=== PATIENT | female | born 1970 | race Caucasian/White ===

== ENCOUNTER 2018-11-10 09:47 | Inpatient (IN) | payer BC, OTHER ==
[~2018-11-10] VITALS: Ht 175.3 cm; Wt 61.2 kg
[~2018-11-10 09:47] MED LIST: CIPR500T87 PO; PROP40TA PO
[2018-11-10 10:17] LABS: BASOPHILS # (AUTO) 0.09 x10^3/uL (0-0.1); BASOPHILS % (AUTO) 1 % (0-1); EOSINOPHILS # (AUTO) 0.05 x10^3/uL (0-0.4); EOSINOPHILS % (AUTO) 1 % (1-7); LYMPHOCYTES # (AUTO) 1.41 x10^3/uL (1-3.4); LYMPHOCYTES % (AUTO) 19 % (22-44); MD NO; MEAN CORPUSCULAR HEMOGLOBIN 33.6 pg (27.0-34.8); MEAN CORPUSCULAR HGB CONC 33.6 g/dL (32.4-35.8); MEAN CORPUSCULAR VOLUME 100.1 fL (80-100); MEAN PLATELET VOLUME 7.7 fL (7.4-10.4); MONOCYTES # (AUTO) 0.52 x10^3/uL (0.2-0.8); MONOCYTES % (AUTO) 7 % (2-9); NEUTROPHILS # (AUTO) 5.25 x10^3/uL (1.8-6.8); NEUTROPHILS % (AUTO) 72 % (42-75); PLATELET COUNT 207 x10^3/uL (130-400); RED BLOOD COUNT 4.38 x10^6/uL (3.82-5.3); RED CELL DISTRIBUTION WIDTH 13.8 % (9.6-15.2)
[2018-11-10 10:26] LABS: ALANINE AMINOTRANSFERASE 26 U/L (12-78); ALBUMIN 3.3 g/dL (3.4-5.0); ANION GAP 7 mmol/L (5-15); CALCIUM 8.5 mg/dL (8.5-10.1); CHLORIDE 105 mmol/L (98-107)
[2018-11-10 10:29] LABS: ALKALINE PHOSPHATASE 184 U/L (45-117); BILIRUBIN,TOTAL 0.6 mg/dL (0.2-1.0)
--- NOTE | 2018-11-10 10:35 | NUR ---
PT AMUBLATORY TO ROOM FROM LOBBY
--- NOTE | 2018-11-10 10:44 | NUR ---
CALL LIGHT W/I REACH, WARM BLANKET PROVIDED. VSS.
[2018-11-10 11:29] LABS: MICROSCOPIC AUTO
[2018-11-10] MEDS ORDERED: OMNIPAQUE 350 MG/ML, 100ML BOTTLE ONE (11:29)
[2018-11-10 11:32] LABS: CULTURE INDICATED? YES
[2018-11-10] MEDS ORDERED: MORPHINE SULFATE 4 MG/ML, 1ML IVPush ONE (12:00)
[2018-11-10] MEDS ORDERED: ONDANSETRON ODT 4 MG PO ONE (12:00)
[2018-11-10] MEDS ORDERED: MORPHINE SULFATE 4 MG/ML, 1ML ONE (12:16)
[2018-11-10] MEDS ORDERED: ONDANSETRON 2MG/ML, 2ML ONE (12:16)
--- NOTE | 2018-11-10 12:18 | NUR ---
Meds admin. VSS. No other needs.
--- NOTE | 2018-11-10 12:33 | NUR ---
Report called to RADHA Winter.
[2018-11-10] MEDS ORDERED: BISACODYL 10 MG SUPP PR PRN (14:00)
[2018-11-10] MEDS ORDERED: PROMETHAZINE 25 MG/ML, 1ML IM PRN (14:00)
[2018-11-10] MEDS ORDERED: hydrALAzine 20 MG/ML, 1ML IVPush PRN (14:00)
[2018-11-10] MEDS ORDERED: LABETALOL 5MG/ML, 20ML IVPush PRN (14:00)
[2018-11-10 14:11] VITALS: BP 134/88
[2018-11-10] MEDS: LACTATED RINGERS 1,000 ML IV SCH ×2 (15:19→20:19)
[2018-11-10] MEDS: morphine SULFATE 10 MG/ML, 1ML IVPush PRN ×2 (15:19→18:45)
[2018-11-10] MEDS: ENOXAPARIN 40 MG/0.4 ML SQ SCH (15:19)
[2018-11-10 19:15] VITALS: BP 142/81
[2018-11-10] MEDS: ONDANSETRON 2MG/ML, 2ML IVPush PRN (20:44)
[2018-11-10 20:51] VITALS: BP 136/85
[2018-11-10] MEDS ORDERED: LORazepam 2 MG/ML, 1ML IVPush PRN (21:30)
[2018-11-11] MEDS: LACTATED RINGERS 1,000 ML IV SCH ×5 (00:12→20:37)
[2018-11-11 00:17] VITALS: BP 146/93
[2018-11-11] MEDS: morphine SULFATE 10 MG/ML, 1ML IVPush PRN ×5 (02:19→21:33)
[2018-11-11 05:16] LABS: MEAN CORPUSCULAR HEMOGLOBIN 34.7 pg (27.0-34.8); MEAN CORPUSCULAR HGB CONC 34.8 g/dL (32.4-35.8); MEAN CORPUSCULAR VOLUME 99.7 fL (80-100); PLATELET COUNT 116 x10^3/uL (130-400); RED BLOOD COUNT 3.58 x10^6/uL (3.82-5.3); RED CELL DISTRIBUTION WIDTH 13.7 % (9.6-15.2)
[2018-11-11 05:21] VITALS: BP 153/89
[2018-11-11 05:25] LABS: ALBUMIN 2.7 g/dL (3.4-5.0); ANION GAP 5 mmol/L (5-15); CALCIUM 7.9 mg/dL (8.5-10.1); CHLORIDE 107 mmol/L (98-107)
[2018-11-11 05:30] LABS: ALANINE AMINOTRANSFERASE 190 U/L (12-78); ALKALINE PHOSPHATASE 584 U/L (45-117); BILIRUBIN,TOTAL 2.7 mg/dL (0.2-1.0); CHOL/HDL RATIO 2.5; CHOLESTEROL, TOTAL 116 mg/dL (140-239); CREATININE 0.67 mg/dL (0.55-1.02); HDL CHOL % 40 % (28-40); HDL CHOLESTEROL (DIRECT) 46 mg/dL (40-60); LDL CHOLESTEROL,CALCULATED 55 mg/dL (54-169); LDL/HDL RATIO 1.2 (0.5-3.0); TOTAL PROTEIN 6.4 g/dL (6.4-8.2); TRIGLYCERIDES 77 mg/dL (50-200); VLDL CHOLESTEROL 15 mg/dL (0-25)
[2018-11-11 06:01] LABS: BASOPHILS # (AUTO) 0.03 x10^3/uL (0-0.1); BASOPHILS % (AUTO) 1 % (0-1); EOSINOPHILS # (AUTO) 0.07 x10^3/uL (0-0.4); EOSINOPHILS % (AUTO) 2 % (1-7); LYMPHOCYTES # (AUTO) 0.77 x10^3/uL (1-3.4); LYMPHOCYTES % (AUTO) 20 % (22-44); MD SCAN; MONOCYTES # (AUTO) 0.19 x10^3/uL (0.2-0.8); MONOCYTES % (AUTO) 5 % (2-9); NEUTROPHILS # (AUTO) 2.79 x10^3/uL (1.8-6.8); NEUTROPHILS % (AUTO) 72 % (42-75)
[2018-11-11 07:31] VITALS: BP 153/84
[2018-11-11] MEDS: PANTOPRAZOLE 40 MG IV IVPush SCH (07:38)
[2018-11-11 11:58] LABS: ALANINE AMINOTRANSFERASE 161 U/L (12-78); ALBUMIN 2.6 g/dL (3.4-5.0); ANION GAP 6 mmol/L (5-15); CALCIUM 8.4 mg/dL (8.5-10.1); CHLORIDE 105 mmol/L (98-107); CREATININE 0.73 mg/dL (0.55-1.02)
[2018-11-11 12:00] LABS: ALKALINE PHOSPHATASE 620 U/L (45-117); BILIRUBIN,TOTAL 3.1 mg/dL (0.2-1.0); TOTAL PROTEIN 6.3 g/dL (6.4-8.2)
[2018-11-11 13:14] VITALS: BP 138/82
[2018-11-11] MEDS: ENOXAPARIN 40 MG/0.4 ML SQ SCH (13:38)
[2018-11-11 20:00] VITALS: BP 144/84
[2018-11-12] MEDS: LACTATED RINGERS 1,000 ML IV SCH ×4 (01:01→18:27)
[2018-11-12 02:00] VITALS: BP 129/78
[2018-11-12] MEDS: morphine SULFATE 10 MG/ML, 1ML IVPush PRN ×3 (03:32→23:58)
[2018-11-12 06:43] LABS: MEAN CORPUSCULAR HEMOGLOBIN 33.3 pg (27.0-34.8); MEAN CORPUSCULAR HGB CONC 32.8 g/dL (32.4-35.8); MEAN CORPUSCULAR VOLUME 101.6 fL (80-100); RED BLOOD COUNT 3.35 x10^6/uL (3.82-5.3)
[2018-11-12 06:51] LABS: CALCIUM 7.6 mg/dL (8.5-10.1); CHLORIDE 103 mmol/L (98-107)
[2018-11-12 06:57] LABS: ALANINE AMINOTRANSFERASE 85 U/L (12-78); ALBUMIN 2.2 g/dL (3.4-5.0); ALKALINE PHOSPHATASE 474 U/L (45-117); ANION GAP 7 mmol/L (5-15); BILIRUBIN,TOTAL 2.1 mg/dL (0.2-1.0); CREATININE 0.64 mg/dL (0.55-1.02); TOTAL PROTEIN 5.5 g/dL (6.4-8.2)
[2018-11-12 07:25] LABS: BASOPHILS # (AUTO) 0.01 x10^3/uL (0-0.1); BASOPHILS % (AUTO) 0 % (0-1); EOSINOPHILS # (AUTO) 0.19 x10^3/uL (0-0.4); EOSINOPHILS % (AUTO) 5 % (1-7); LYMPHOCYTES # (AUTO) 0.91 x10^3/uL (1-3.4); LYMPHOCYTES % (AUTO) 25 % (22-44); MD SCAN; MEAN PLATELET VOLUME 8.8 fL (7.4-10.4); MONOCYTES # (AUTO) 0.26 x10^3/uL (0.2-0.8); MONOCYTES % (AUTO) 7 % (2-9); NEUTROPHILS # (AUTO) 2.25 x10^3/uL (1.8-6.8); NEUTROPHILS % (AUTO) 62 % (42-75); PLATELET COUNT 117 x10^3/uL (130-400)
[2018-11-12] MEDS: PANTOPRAZOLE 40 MG IV IVPush SCH (08:32)
[2018-11-12 10:03] VITALS: BP 135/88
[2018-11-12 10:04] VITALS: BP 135/88
[2018-11-12] MEDS ORDERED: LORazepam 2 MG/ML, 1ML IVPush PRN (13:30)
[2018-11-12 13:40] VITALS: BP 147/93
[2018-11-12] MEDS: ENOXAPARIN 40 MG/0.4 ML SQ SCH (18:27)
[2018-11-12 20:00] VITALS: BP 152/90
[2018-11-12] MEDS: ONDANSETRON 2MG/ML, 2ML IVPush PRN (20:52)
[2018-11-13 02:00] VITALS: BP 156/86
[2018-11-13] MEDS: ACETAMINOPHEN 325 MG TABLET PO PRN ×2 (02:49→10:34)
[2018-11-13] MEDS: LACTATED RINGERS 1,000 ML IV SCH (06:28)
[2018-11-13 06:35] LABS: ALBUMIN 2.2 g/dL (3.4-5.0); ANION GAP 7 mmol/L (5-15); CALCIUM 7.9 mg/dL (8.5-10.1); CHLORIDE 103 mmol/L (98-107)
[2018-11-13 06:40] LABS: ALANINE AMINOTRANSFERASE 55 U/L (12-78); ALKALINE PHOSPHATASE 380 U/L (45-117); CREATININE 0.72 mg/dL (0.55-1.02); TOTAL PROTEIN 5.5 g/dL (6.4-8.2)
[2018-11-13 06:54] VITALS: BP 161/81
[2018-11-13] MEDS: PANTOPRAZOLE 40 MG IV IVPush SCH (07:38)
[2018-11-13] MEDS ORDERED: OMEP-110 PO (10:10)
[2018-11-13] MEDS ORDERED: LIPA1CAP61 PO (10:10)
[2018-11-13] MEDS ORDERED: GABA-826 PO (10:15)
[2018-11-13] MEDS ORDERED: ACETAMINOPHEN 650 MG/20.3 ML UDC ONE (10:32)
[2018-11-13 13:06] VITALS: BP 156/98
== END 2018-11-13 13:15 | disposition home or self-care (01) | DRG 439 ==
LOC: ED 12:07 → 3NE 12:08 → ED 12:23 → 3NE 11-11 16:23 → DCLOUNGE 11-13 13:11
PROVIDERS: ADMIT Hospitalist; ATTEND Hospitalist
DX: K85.20 Alcohol induced acute pancreatitis without necrosis or infection (principal); E44.0 Moderate protein-calorie malnutrition; Z68.1 Body mass index [BMI] 19.9 or less, adult; K86.0 Alcohol-induced chronic pancreatitis; K70.9 Alcoholic liver disease, unspecified; K44.9 Diaphragmatic hernia without obstruction or gangrene; N18.9 Chronic kidney disease, unspecified; I12.9 Hypertensive chronic kidney disease with stage 1 through stage 4 chronic kidney disease, or unspecified chronic kidney disease; F10.21 Alcohol dependence, in remission; D69.6 Thrombocytopenia, unspecified; L71.9 Rosacea, unspecified; K83.8 Other specified diseases of biliary tract; K59.09 Other constipation; Z90.49 Acquired absence of other specified parts of digestive tract; Z79.899 Other long term (current) drug therapy
CPT/HCPCS: 36415; 74177; 74181; 80053; 80061; 81001; 83615; 83690; 83735; 84100; 85025; 87086; 93005; 96374; 99285; G0378; J1650; J2405; Q0162; Q9967; C9113; J2060; J2270; J7120

== ENCOUNTER 2018-11-22 21:02 | Inpatient (IN) | payer BC ==
[~2018-11-22] VITALS: Ht 175.3 cm; Wt 59.1 kg
[~2018-11-22 21:02] MED LIST changes: +GABA-826 PO; +LIPA1CAP61 PO; +OMEP-110 PO
[2018-11-22] MEDS ORDERED: ONDANSETRON ODT 4 MG ONE (21:08)
--- NOTE | 2018-11-22 21:21 | NUR ---
ZOFRAN GIVEN IN TRIAGE.
[2018-11-22 21:22] LABS: BASOPHILS # (AUTO) 0.08 x10^3/uL (0-0.1); BASOPHILS % (AUTO) 1 % (0-1); EOSINOPHILS # (AUTO) 0.05 x10^3/uL (0-0.4); EOSINOPHILS % (AUTO) 1 % (1-7); LYMPHOCYTES # (AUTO) 1.55 x10^3/uL (1-3.4); LYMPHOCYTES % (AUTO) 15 % (22-44); MD NO; MEAN CORPUSCULAR HEMOGLOBIN 33.5 pg (27.0-34.8); MEAN CORPUSCULAR HGB CONC 32.9 g/dL (32.4-35.8); MEAN PLATELET VOLUME 7.9 fL (7.4-10.4); MONOCYTES # (AUTO) 0.47 x10^3/uL (0.2-0.8); MONOCYTES % (AUTO) 5 % (2-9); NEUTROPHILS # (AUTO) 8.23 x10^3/uL (1.8-6.8); NEUTROPHILS % (AUTO) 79 % (42-75); PLATELET COUNT 260 x10^3/uL (130-400); RED BLOOD COUNT 4.78 x10^6/uL (3.82-5.3); RED CELL DISTRIBUTION WIDTH 14.1 % (9.6-15.2)
[2018-11-22] MEDS ORDERED: ONDANSETRON ODT 4 MG PO ONE (21:30)
[2018-11-22] MEDS ORDERED: SODIUM CHLORIDE FLUSH 10ML SYR IVF ONE (21:30)
[2018-11-22 21:32] LABS: ALANINE AMINOTRANSFERASE 28 U/L (12-78); ALBUMIN 3.6 g/dL (3.4-5.0); ANION GAP 10 mmol/L (5-15); CALCIUM 8.2 mg/dL (8.5-10.1); CHLORIDE 110 mmol/L (98-107); CREATININE 0.84 mg/dL (0.55-1.02)
[2018-11-22 21:34] LABS: ALKALINE PHOSPHATASE 298 U/L (45-117); BILIRUBIN,TOTAL 0.5 mg/dL (0.2-1.0); TOTAL PROTEIN 8.4 g/dL (6.4-8.2)
[2018-11-22] MEDS ORDERED: PROMETHAZINE 25 MG/ML, 1ML IM ONE (22:00)
[2018-11-22] MEDS ORDERED: MORPHINE SULFATE 4 MG/ML, 1ML IVPush PRN (22:00)
[2018-11-22] MEDS ORDERED: METOCLOPRAMIDE 5 MG/ML, 2ML IVPush ONE (22:00)
[2018-11-22] MEDS ORDERED: MORPHINE SULFATE 4 MG/ML, 1ML ONE (22:08)
[2018-11-22] MEDS ORDERED: PROMETHAZINE 25 MG/ML, 1ML ONE (22:08)
[2018-11-22] MEDS ORDERED: METOCLOPRAMIDE 5 MG/ML, 2ML ONE (22:08)
[2018-11-22] MEDS ORDERED: SODIUM CHLORIDE 0.9% 1,000 ML IV ONE (22:09)
--- NOTE | 2018-11-22 22:47 | NUR ---
PT AWARE SHE IT TO BE ADMITTED. PT SPOUSE SLEEPING ON CHAIRS.
[2018-11-22] MEDS ORDERED: morphine SULFATE 10 MG/ML, 1ML IVPush PRN (23:00)
[2018-11-22] MEDS ORDERED: ONDANSETRON 2MG/ML, 2ML IVPush PRN (23:00)
[2018-11-22] MEDS ORDERED: BISACODYL 10 MG SUPP PR PRN (23:00)
[2018-11-22 23:57] VITALS: BP 104/72
[2018-11-23] LABS: FOLATE LEVEL 5.5 ng/mL (3.1-17.5)
[2018-11-23] MEDS: LACTATED RINGERS 1,000 ML IV SCH ×3 (00:01→08:01)
[2018-11-23 00:10] LABS: MICROSCOPIC NOT IND
[2018-11-23 00:13] LABS: CULTURE INDICATED? NO
[2018-11-23 01:57] VITALS: BP 102/72
[2018-11-23 05:41] LABS: BASOPHILS # (AUTO) 0.03 x10^3/uL (0-0.1); BASOPHILS % (AUTO) 1 % (0-1); EOSINOPHILS # (AUTO) 0.02 x10^3/uL (0-0.4); EOSINOPHILS % (AUTO) 0 % (1-7); LYMPHOCYTES # (AUTO) 1.27 x10^3/uL (1-3.4); LYMPHOCYTES % (AUTO) 23 % (22-44); MD NO; MEAN CORPUSCULAR HEMOGLOBIN 34.9 pg (27.0-34.8); MEAN CORPUSCULAR VOLUME 99.8 fL (80-100); MEAN PLATELET VOLUME 7.9 fL (7.4-10.4); MONOCYTES # (AUTO) 0.47 x10^3/uL (0.2-0.8); MONOCYTES % (AUTO) 8 % (2-9); NEUTROPHILS # (AUTO) 3.87 x10^3/uL (1.8-6.8); NEUTROPHILS % (AUTO) 68 % (42-75); PLATELET COUNT 171 x10^3/uL (130-400); RED CELL DISTRIBUTION WIDTH 14.6 % (9.6-15.2)
[2018-11-23 05:49] LABS: ALBUMIN 2.9 g/dL (3.4-5.0); CALCIUM 7.6 mg/dL (8.5-10.1); CHLORIDE 113 mmol/L (98-107)
[2018-11-23 05:54] LABS: ALANINE AMINOTRANSFERASE 63 U/L (12-78); ALKALINE PHOSPHATASE 459 U/L (45-117); ANION GAP 8 mmol/L (5-15); BILIRUBIN,TOTAL 0.7 mg/dL (0.2-1.0); CREATININE 0.75 mg/dL (0.55-1.02); TOTAL PROTEIN 6.8 g/dL (6.4-8.2)
[2018-11-23] MEDS ORDERED: LORazepam 2 MG/ML, 1ML IV PRN ×5 (13:30)
[2018-11-23] MEDS ORDERED: CHLORDIAZEPOXIDE 25 MG CAPSULE PO ONE (13:30)
[2018-11-23] MEDS ORDERED: LORazepam 1MG TABLET PO PRN ×4 (13:30)
[2018-11-23] MEDS: LORazepam 0.5MG TABLET PO PRN ×2 (14:08→21:22)
[2018-11-23] MEDS: POTASSIUM CHLORIDE 20 MEQ, MAGNESIUM SULFATE 1 GM, FOLIC ACID 1 MG, THIAMINE 200 MG, MV... IV SCH (14:19)
[2018-11-23] MEDS ORDERED: CYANOCOBALAMIN 1,000 MCG/ML, 1ML IM ONE (15:30)
[2018-11-23] MEDS ORDERED: morphine SULFATE 10 MG/ML, 1ML IVPush PRN (17:00)
[2018-11-23 21:54] VITALS: BP 150/101
[2018-11-23] MEDS ORDERED: LACTATED RINGERS 1,000 ML IV SCH (23:00)
[2018-11-24] MEDS: LACTATED RINGERS 1,000 ML IV SCH ×4 (00:08→13:14)
[2018-11-24 00:17] VITALS: BP 138/91
[2018-11-24] MEDS: LORazepam 0.5MG TABLET PO PRN ×5 (01:25→18:41)
[2018-11-24 05:24] LABS: CHLORIDE 108 mmol/L (98-107)
[2018-11-24 05:28] LABS: ALANINE AMINOTRANSFERASE 32 U/L (12-78); ALBUMIN 2.5 g/dL (3.4-5.0); ALKALINE PHOSPHATASE 333 U/L (45-117); ANION GAP 5 mmol/L (5-15); BILIRUBIN,TOTAL 1.1 mg/dL (0.2-1.0); CALCIUM 7.6 mg/dL (8.5-10.1); CREATININE 0.61 mg/dL (0.55-1.02); TOTAL PROTEIN 5.8 g/dL (6.4-8.2)
[2018-11-24 05:42] LABS: BASOPHILS # (AUTO) 0.04 x10^3/uL (0-0.1); BASOPHILS % (AUTO) 1 % (0-1); EOSINOPHILS # (AUTO) 0.17 x10^3/uL (0-0.4); EOSINOPHILS % (AUTO) 4 % (1-7); LYMPHOCYTES # (AUTO) 1.48 x10^3/uL (1-3.4); LYMPHOCYTES % (AUTO) 33 % (22-44); MD NO; MEAN CORPUSCULAR HEMOGLOBIN 35.1 pg (27.0-34.8); MEAN CORPUSCULAR HGB CONC 34.5 g/dL (32.4-35.8); MEAN CORPUSCULAR VOLUME 101.6 fL (80-100); MEAN PLATELET VOLUME 8.6 fL (7.4-10.4); MONOCYTES # (AUTO) 0.39 x10^3/uL (0.2-0.8); MONOCYTES % (AUTO) 9 % (2-9); NEUTROPHILS # (AUTO) 2.45 x10^3/uL (1.8-6.8); NEUTROPHILS % (AUTO) 54 % (42-75); PLATELET COUNT 127 x10^3/uL (130-400); RED BLOOD COUNT 3.38 x10^6/uL (3.82-5.3); RED CELL DISTRIBUTION WIDTH 14.1 % (9.6-15.2)
[2018-11-24 07:23] VITALS: BP 138/95
[2018-11-24] MEDS ORDERED: POTASSIUM CHLORIDE 20 MEQ TAB.ER.PRT PO ONE ×2 (08:30→11:30)
[2018-11-24] MEDS ORDERED: PANTOPRAZOLE 40 MG IV IVPush SCH (08:30)
[2018-11-24] MEDS: NEUTRA PHOS K 250 MG TABLET PO SCH ×3 (09:15→22:04)
[2018-11-24 12:39] VITALS: BP 130/92
[2018-11-24] MEDS: POTASSIUM CHLORIDE 20 MEQ, MAGNESIUM SULFATE 1 GM, FOLIC ACID 1 MG, THIAMINE 200 MG, MV... IV SCH (16:24)
[2018-11-24] MEDS: PANTOPROZOLE 40MG TABLET PO SCH ×2 (17:08→22:04)
[2018-11-24 19:07] VITALS: BP 130/82
[2018-11-25 01:45] VITALS: BP 126/80
[2018-11-25 05:00] LABS: BASOPHILS # (AUTO) 0.03 x10^3/uL (0-0.1); BASOPHILS % (AUTO) 1 % (0-1); EOSINOPHILS # (AUTO) 0.18 x10^3/uL (0-0.4); EOSINOPHILS % (AUTO) 5 % (1-7); LYMPHOCYTES # (AUTO) 1.42 x10^3/uL (1-3.4); LYMPHOCYTES % (AUTO) 39 % (22-44); MD NO; MEAN CORPUSCULAR HGB CONC 34.7 g/dL (32.4-35.8); MEAN CORPUSCULAR VOLUME 100.9 fL (80-100); MEAN PLATELET VOLUME 8.6 fL (7.4-10.4); MONOCYTES % (AUTO) 8 % (2-9); NEUTROPHILS # (AUTO) 1.69 x10^3/uL (1.8-6.8); NEUTROPHILS % (AUTO) 47 % (42-75); PLATELET COUNT 136 x10^3/uL (130-400); RED BLOOD COUNT 3.38 x10^6/uL (3.82-5.3)
[2018-11-25 05:10] LABS: ALBUMIN 2.5 g/dL (3.4-5.0); ANION GAP 2 mmol/L (5-15); CALCIUM 7.3 mg/dL (8.5-10.1); CHLORIDE 109 mmol/L (98-107)
[2018-11-25 05:13] LABS: ALANINE AMINOTRANSFERASE 25 U/L (12-78); ALKALINE PHOSPHATASE 279 U/L (45-117); BILIRUBIN,TOTAL 0.7 mg/dL (0.2-1.0); CREATININE 0.64 mg/dL (0.55-1.02); TOTAL PROTEIN 5.8 g/dL (6.4-8.2)
[2018-11-25] MEDS: PANTOPROZOLE 40MG TABLET PO SCH (05:18)
[2018-11-25] MEDS: LACTATED RINGERS 1,000 ML IV SCH ×2 (06:29→12:51)
[2018-11-25 07:27] VITALS: BP 144/62
[2018-11-25] MEDS: NEUTRA PHOS K 250 MG TABLET PO SCH (08:44)
[2018-11-25] MEDS ORDERED: FOLI-17 PO (12:29)
[2018-11-25] MEDS ORDERED: THIA100T67 PO (12:29)
[2018-11-25] MEDS ORDERED: PANT40TA5 PO (12:30)
[2018-11-25 13:22] VITALS: BP 154/88
== END 2018-11-25 14:16 | disposition home or self-care (01) | DRG 440 ==
LOC: ED 22:27 → EDIP 22:31 → 4NOR 23:08 → DCLOUNGE 11-25 14:10
PROVIDERS: ADMIT Internal Medicine; ATTEND Internal Medicine
DX: K85.20 Alcohol induced acute pancreatitis without necrosis or infection (principal); D75.89 Other specified diseases of blood and blood-forming organs; E86.9 Volume depletion, unspecified; E87.5 Hyperkalemia; F10.21 Alcohol dependence, in remission; I12.9 Hypertensive chronic kidney disease with stage 1 through stage 4 chronic kidney disease, or unspecified chronic kidney disease; K70.9 Alcoholic liver disease, unspecified; K86.1 Other chronic pancreatitis; N18.9 Chronic kidney disease, unspecified; Y90.8 Blood alcohol level of 240 mg/100 ml or more
CPT/HCPCS: 36415; 99285; J7042; 80053; 80307; 81003; 82607; 82746; 82977; 83690; 83735; 84100; 84703; 85025; 96372; 96374; 96375; G0378; J2550; J3411; J3475; J3480; Q0162; C9113; J2765; J3420; J7120

== ENCOUNTER 2018-12-28 10:28 | Inpatient (IN) | payer BC ==
[~2018-12-28] VITALS: Ht 175.3 cm; Wt 57.3 kg
[~2018-12-28 10:28] MED LIST changes: +FOLI-17 PO; +PANT40TA5 PO; +THIA100T67 PO
--- NOTE | 2018-12-28 11:15 | NUR ---
GROUP TESTER: PT AMBULATORY TO ROOM FROM LOBBY
[2018-12-28] MEDS ORDERED: SODIUM CHLORIDE FLUSH 10ML SYR IVF ONE (11:30)
[2018-12-28] MEDS ORDERED: SODIUM CHLORIDE 0.9% 1,000ML IVBOLUS ONE (11:30)
[2018-12-28] MEDS ORDERED: FAMOTIDINE 20 MG/2 ML IVP ONE (11:30)
[2018-12-28] MEDS ORDERED: MAALOX/HYOSCYAMINE/LIDOCAINE 45 ML BTL PO ONE (11:30)
[2018-12-28] MEDS ORDERED: ONDANSETRON 2MG/ML, 2ML IVPush ONE (11:30)
[2018-12-28] MEDS ORDERED: LORazepam 2 MG/ML, 1ML IVPush ONE (11:30)
[2018-12-28] MEDS ORDERED: LORazepam 2 MG/ML, 1ML ONE (11:53)
[2018-12-28] MEDS ORDERED: ONDANSETRON 2MG/ML, 2ML ONE (11:54)
[2018-12-28 11:57] LABS: BASOPHILS # (AUTO) 0.02 x10^3/uL (0-0.1); BASOPHILS % (AUTO) 0 % (0-1); EOSINOPHILS # (AUTO) 0.06 x10^3/uL (0-0.4); EOSINOPHILS % (AUTO) 1 % (1-7); LYMPHOCYTES # (AUTO) 0.68 x10^3/uL (1-3.4); LYMPHOCYTES % (AUTO) 14 % (22-44); MD NO; MEAN CORPUSCULAR HEMOGLOBIN 34.8 pg (27.0-34.8); MEAN CORPUSCULAR VOLUME 102.4 fL (80-100); MEAN PLATELET VOLUME 8.5 fL (7.4-10.4); MONOCYTES % (AUTO) 6 % (2-9); NEUTROPHILS # (AUTO) 3.96 x10^3/uL (1.8-6.8); NEUTROPHILS % (AUTO) 79 % (42-75); PLATELET COUNT 127 x10^3/uL (130-400); RED BLOOD COUNT 4.02 x10^6/uL (3.82-5.3); RED CELL DISTRIBUTION WIDTH 15.3 % (9.6-15.2)
[2018-12-28 12:09] LABS: ALBUMIN 3.2 g/dL (3.4-5.0); ANION GAP 9 mmol/L (5-15); CALCIUM 8.6 mg/dL (8.5-10.1); CHLORIDE 102 mmol/L (98-107)
[2018-12-28] MEDS ORDERED: FAMOTIDINE 20 MG/2 ML ONE (12:09)
[2018-12-28 12:15] LABS: ALANINE AMINOTRANSFERASE 135 U/L (12-78); ALKALINE PHOSPHATASE 781 U/L (45-117); BILIRUBIN,TOTAL 2.6 mg/dL (0.2-1.0); CREATININE 0.86 mg/dL (0.55-1.02); TOTAL PROTEIN 7.1 g/dL (6.4-8.2)
--- NOTE | 2018-12-28 12:15 | NUR ---
FLUIDS INFUSING AND MEDICATED PER ORDERS
[2018-12-28] MEDS ORDERED: MAALOX/HYOSCYAMINE/LIDOCAINE 45 ML BTL ONE (12:33)
[2018-12-28] MEDS ORDERED: SODIUM CHLORIDE 0.9% 1,000 ML IV ONE (13:10)
[2018-12-28] MEDS ORDERED: LORazepam 2 MG/ML, 1ML IV PRN ×5 (13:30)
[2018-12-28] MEDS ORDERED: LORazepam 1MG TABLET PO PRN ×4 (13:30)
[2018-12-28] MEDS ORDERED: BISACODYL 10 MG SUPP PR PRN (13:30)
[2018-12-28] MEDS ORDERED: ONDANSETRON 2MG/ML, 2ML IVPush PRN (13:30)
[2018-12-28] MEDS ORDERED: LIDODERM 5% PATCH TD PRN (13:30)
[2018-12-28] MEDS ORDERED: SODIUM CHLORIDE FLUSH 10ML SYR IVF PRN (13:30)
[2018-12-28] MEDS ORDERED: DOCUSATE 100 MG CAPSULE PO PRN (13:30)
[2018-12-28] MEDS ORDERED: LORazepam 0.5MG TABLET PO PRN (13:30)
[2018-12-28] MEDS ORDERED: ONDANSETRON 2MG/ML, 2ML IV PRN (13:30)
[2018-12-28] MEDS ORDERED: hydrALAzine 20 MG/ML, 1ML IVPush PRN (13:30)
[2018-12-28] MEDS ORDERED: morphine SULFATE 10 MG/ML, 1ML IVPush PRN (13:30)
--- NOTE | 2018-12-28 13:37 | NUR ---
pt to mri at this time
--- NOTE | 2018-12-28 13:47 | NUR ---
PT NOT IN ROOM AT THIS TIME
--- NOTE | 2018-12-28 14:11 | NUR ---
UNABLE TO FIND PT IN ER. TECH TO LOOK FURTHER ON HOSPITAL CAMP[facility]
--- NOTE | 2018-12-28 14:24 | NUR ---
PT HAD BEEN IN MRI. RETURNED BY W/C
[2018-12-28] MEDS ORDERED: KETOROLAC 30 MG/1 ML ONE (14:26)
[2018-12-28] MEDS: KETOROLAC 30 MG/1 ML IV PRN ×2 (14:27→23:59)
--- NOTE | 2018-12-28 14:50 | NUR ---
REPORT TO LESLIE. HOSPITALIST AT BEDSIDE
[2018-12-28] MEDS ORDERED: MAGNESIUM SULFATE 1 GM in SODIUM CHLORIDE 0.9% 50 ML IV ONE (15:00)
[2018-12-28 15:31] VITALS: BP 127/85
[2018-12-28 15:39] LABS: INTERNATIONAL NORMALIZED RATIO 1.22 (0.93-1.1); PROTHROMBIN TIME 12.7 Seconds (9.6-11.5)
[2018-12-28] MEDS: LACTATED RINGERS 1,000 ML IV SCH ×2 (16:25→23:52)
[2018-12-28] MEDS ORDERED: PANCRELIPASE 24,000 CAPSULE.DR PO SCH (17:00)
[2018-12-28 17:51] LABS: MICROSCOPIC INDICATED
[2018-12-28 17:52] LABS: CULTURE INDICATED? YES
[2018-12-28 18:10] LABS: AMPHETAMINE SCREEN, URINE Negative (Negative); BARBITURATE SCREEN, URINE Negative (Negative); BENZODIAZEPINE SCREEN, URINE Positive (Negative); CANNABINOID SCREEN, URINE Positive (Negative); COCAINE SCREEN, URINE Negative (Negative); METHADONE SCREEN, URINE Negative (Negative); OPIATE SCREEN, URINE Negative (Negative)
[2018-12-28 19:48] VITALS: BP 137/84
[2018-12-28] MEDS: CEFTRIAXONE PMX 1GM/50ML 50 ML IV SCH (21:01)
[2018-12-29 01:19] VITALS: BP 135/80
[2018-12-29] MEDS: LACTATED RINGERS 1,000 ML IV SCH ×4 (04:30→22:00)
[2018-12-29 05:09] LABS: CALCIUM 7.7 mg/dL (8.5-10.1); CHLORIDE 105 mmol/L (98-107)
[2018-12-29 05:15] LABS: ALANINE AMINOTRANSFERASE 76 U/L (12-78); ALBUMIN 2.5 g/dL (3.4-5.0); ALKALINE PHOSPHATASE 525 U/L (45-117); ANION GAP 12 mmol/L (5-15); BILIRUBIN,TOTAL 1.4 mg/dL (0.2-1.0); TOTAL PROTEIN 5.6 g/dL (6.4-8.2)
[2018-12-29 05:34] LABS: MEAN CORPUSCULAR HEMOGLOBIN 35.6 pg (27.0-34.8); MEAN CORPUSCULAR HGB CONC 34.6 g/dL (32.4-35.8); MEAN CORPUSCULAR VOLUME 102.9 fL (80-100); MEAN PLATELET VOLUME 9.1 fL (7.4-10.4); PLATELET COUNT 75 x10^3/uL (130-400); RED BLOOD COUNT 3.17 x10^6/uL (3.82-5.3); RED CELL DISTRIBUTION WIDTH 15.1 % (9.6-15.2)
[2018-12-29 05:35] LABS: BASOPHILS # (AUTO) 0.02 x10^3/uL (0-0.1); BASOPHILS % (AUTO) 1 % (0-1); EOSINOPHILS # (AUTO) 0.11 x10^3/uL (0-0.4); EOSINOPHILS % (AUTO) 3 % (1-7); LYMPHOCYTES # (AUTO) 1.06 x10^3/uL (1-3.4); LYMPHOCYTES % (AUTO) 25 % (22-44); MD SCAN; MONOCYTES # (AUTO) 0.36 x10^3/uL (0.2-0.8); MONOCYTES % (AUTO) 8 % (2-9); NEUTROPHILS # (AUTO) 2.76 x10^3/uL (1.8-6.8); NEUTROPHILS % (AUTO) 64 % (42-75)
[2018-12-29 07:48] VITALS: BP 129/79
[2018-12-29] MEDS ORDERED: MULTIVITAMINS/MINERALS TABLET PO SCH (09:00)
[2018-12-29] MEDS ORDERED: PANTOPROZOLE 40MG TABLET PO SCH (09:00)
[2018-12-29] MEDS ORDERED: FOLIC ACID 1 MG TABLET PO SCH (09:00)
[2018-12-29] MEDS ORDERED: THIAMINE 100MG TABLET PO SCH (09:00)
[2018-12-29] MEDS: PANCRELIPASE 24,000 CAPSULE.DR PO SCH ×2 (12:19→16:54)
[2018-12-29] MEDS: KETOROLAC 30 MG/1 ML IV PRN (12:32)
[2018-12-29 13:45] VITALS: BP 125/84
[2018-12-29] MEDS: CEFTRIAXONE PMX 1GM/50ML 50 ML IV SCH (20:13)
[2018-12-29 21:45] VITALS: BP 140/85
== END 2018-12-30 00:49 | disposition left against medical advice (07) | DRG 432 ==
LOC: ED 12:29 → EDIP 13:10 → 4WST 15:24
PROVIDERS: ADMIT Hospitalist; ATTEND Hospitalist
DX: K70.10 Alcoholic hepatitis without ascites (principal); K85.20 Alcohol induced acute pancreatitis without necrosis or infection; K86.0 Alcohol-induced chronic pancreatitis; F10.239 Alcohol dependence with withdrawal, unspecified; N39.0 Urinary tract infection, site not specified; K92.1 Melena; K70.30 Alcoholic cirrhosis of liver without ascites; D64.9 Anemia, unspecified; D69.6 Thrombocytopenia, unspecified; D75.89 Other specified diseases of blood and blood-forming organs; E83.42 Hypomagnesemia; E87.6 Hypokalemia; G89.29 Other chronic pain; Z53.21 Procedure and treatment not carried out due to patient leaving prior to being seen by health care provider; I12.9 Hypertensive chronic kidney disease with stage 1 through stage 4 chronic kidney disease, or unspecified chronic kidney disease; N18.9 Chronic kidney disease, unspecified; K59.00 Constipation, unspecified; K83.8 Other specified diseases of biliary tract; Z86.010 Personal history of colon polyps
CPT/HCPCS: 36415; J3490; 74181; 80053; 80307; 81001; 83690; 83735; 84100; 84703; 85025; 85610; 87086; 96374; G0378; J0696; J1885; J2405; J3475; J2060; J7030; J7120

== ENCOUNTER 2019-01-13 10:39 | Inpatient (IN) | payer BC ==
[~2019-01-13] VITALS: Ht 175.3 cm; Wt 58.1 kg
[2019-01-13] MEDS ORDERED: OMEP10CA4 PO (11:10)
--- NOTE | 2019-01-13 11:38 | NUR ---
MD TO BEDSIDE FOR ASSESSMENT, ORDERS RECEIVED. IV PLACED, LABS DRAWN AND FLUIDS STARTED.
[2019-01-13] MEDS ORDERED: ONDANSETRON 2MG/ML, 2ML ONE (11:40)
[2019-01-13 11:49] LABS: BASOPHILS # (AUTO) 0.08 x10^3/uL (0-0.1); BASOPHILS % (AUTO) 1 % (0-1); EOSINOPHILS # (AUTO) 0.03 x10^3/uL (0-0.4); EOSINOPHILS % (AUTO) 1 % (1-7); LYMPHOCYTES # (AUTO) 1.14 x10^3/uL (1-3.4); LYMPHOCYTES % (AUTO) 18 % (22-44); MD NO; MEAN CORPUSCULAR HEMOGLOBIN 34.6 pg (27.0-34.8); MEAN CORPUSCULAR HGB CONC 33.8 g/dL (32.4-35.8); MEAN CORPUSCULAR VOLUME 102.3 fL (80-100); MEAN PLATELET VOLUME 8.7 fL (7.4-10.4); MONOCYTES # (AUTO) 0.44 x10^3/uL (0.2-0.8); MONOCYTES % (AUTO) 7 % (2-9); NEUTROPHILS # (AUTO) 4.74 x10^3/uL (1.8-6.8); NEUTROPHILS % (AUTO) 74 % (42-75); PLATELET COUNT 172 x10^3/uL (130-400); RED BLOOD COUNT 4.45 x10^6/uL (3.82-5.3)
[2019-01-13] MEDS ORDERED: LORazepam 2 MG/ML, 1ML ONE (11:51)
[2019-01-13] MEDS: LORazepam 2 MG/ML, 1ML IVPush PRN ×2 (11:59→13:16)
[2019-01-13] MEDS ORDERED: ONDANSETRON 2MG/ML, 2ML IVPush ONE (12:00)
[2019-01-13] MEDS ORDERED: SODIUM CHLORIDE FLUSH 10ML SYR IVF ONE (12:00)
[2019-01-13] MEDS ORDERED: SODIUM CHLORIDE 0.9% 1,000ML IVBOLUS ONE (12:00)
[2019-01-13 12:01] LABS: ALANINE AMINOTRANSFERASE 35 U/L (12-78); ALBUMIN 3.7 g/dL (3.4-5.0); ANION GAP 13 mmol/L (5-15); CALCIUM 8.8 mg/dL (8.5-10.1); CHLORIDE 107 mmol/L (98-107); CREATININE 0.92 mg/dL (0.55-1.02); INTERNATIONAL NORMALIZED RATIO 1.19 (0.93-1.1); PROTHROMBIN TIME 12.4 Seconds (9.6-11.5)
[2019-01-13 12:04] LABS: ALKALINE PHOSPHATASE 299 U/L (45-117); BILIRUBIN,TOTAL 1.1 mg/dL (0.2-1.0); TOTAL PROTEIN 8.1 g/dL (6.4-8.2)
[2019-01-13 12:35] LABS: MICROSCOPIC INDICATED
[2019-01-13 12:36] LABS: CULTURE INDICATED? YES
[2019-01-13] MEDS ORDERED: SODIUM CHLORIDE 0.9% 1,000 ML IV ONE (12:53)
[2019-01-13] MEDS ORDERED: CEFTRIAXONE PMX 1GM/50ML 50 ML IV ONE (13:00)
[2019-01-13] MEDS ORDERED: CEFTRIAXONE PMX 1GM/50ML 50 ML ONE (13:10)
--- NOTE | 2019-01-13 13:16 | NUR ---
PT MEDICATED WITH SECOND DOSE ATIVAN FOR TREMORS. SECOND BOLUS GIVEN AND ABX STARTED PER NOV. PT CONTINUES TO BE TACHY AND HTN. AWARE. CALL LIGHT WITHIN REACH. AWAITING ROOM ASSIGNMENT ON FLOOR
--- NOTE | 2019-01-13 13:46 | NUR ---
REPORT GIVEN TO CESARIO GARCIA, PT READY FOR TRANSPORT
[2019-01-13] MEDS ORDERED: ONDANSETRON 2MG/ML, 2ML IVPush PRN (14:00)
[2019-01-13] MEDS: LACTATED RINGERS 1,000 ML IV SCH ×2 (14:00→20:06)
[2019-01-13] MEDS ORDERED: POLYETHYLENE GLYCOL 17 GM PACKET PO PRN (14:00)
[2019-01-13] MEDS ORDERED: LABETALOL 5MG/ML, 20ML IVPush PRN (14:00)
[2019-01-13] MEDS ORDERED: LORazepam 1MG TABLET PO PRN ×3 (14:00)
[2019-01-13] MEDS ORDERED: ONDANSETRON ODT 4 MG PO PRN (14:00)
[2019-01-13] MEDS ORDERED: CHLORDIAZEPOXIDE 25 MG CAPSULE PO PRN (14:00)
[2019-01-13] MEDS ORDERED: LORazepam 2 MG/ML, 1ML IV PRN ×4 (14:00)
[2019-01-13 15:06] LABS: FREE T4 (FREE THYROXINE) 0.97 ng/dL (0.76-1.46)
[2019-01-13] MEDS ORDERED: POTASSIUM CHLORIDE 20 MEQ TAB.ER.PRT PO ONE ×2 (15:30→21:30)
[2019-01-13] MEDS ORDERED: MAGNESIUM SULFATE PMX 4GM/100M 100 ML IV ONE (15:30)
[2019-01-13] MEDS: morphine SULFATE 10 MG/ML, 1ML IVPush PRN ×2 (16:18→21:52)
[2019-01-13] MEDS: LORazepam 1MG TABLET PO PRN (16:56)
[2019-01-13] MEDS: PANTOPROZOLE 40MG TABLET PO SCH (16:56)
[2019-01-13] MEDS: PANCRELIPASE 24,000 CAPSULE.DR PO SCH (17:00)
[2019-01-13] MEDS: CHLORDIAZEPOXIDE 25 MG CAPSULE PO SCH ×2 (17:46→21:34)
[2019-01-13 18:20] VITALS: BP 140/94
[2019-01-13 20:00] VITALS: BP 149/89
[2019-01-13] MEDS: POTASSIUM CHLORIDE 20 MEQ, MAGNESIUM SULFATE 1 GM, FOLIC ACID 1 MG, THIAMINE 200 MG, MV... IV SCH (21:35)
[2019-01-14 02:00] VITALS: BP 143/92
[2019-01-14] MEDS: morphine SULFATE 10 MG/ML, 1ML IVPush PRN ×3 (03:50→15:34)
[2019-01-14 05:04] LABS: ALBUMIN 2.6 g/dL (3.4-5.0); ANION GAP 4 mmol/L (5-15); CALCIUM 7.3 mg/dL (8.5-10.1); CHLORIDE 115 mmol/L (98-107)
[2019-01-14 05:18] LABS: ALANINE AMINOTRANSFERASE 86 U/L (12-78); ALKALINE PHOSPHATASE 433 U/L (45-117); BILIRUBIN,TOTAL 1.5 mg/dL (0.2-1.0); CREATININE 0.73 mg/dL (0.55-1.02); TOTAL PROTEIN 5.9 g/dL (6.4-8.2)
[2019-01-14 05:44] LABS: BASOPHILS # (AUTO) 0.03 x10^3/uL (0-0.1); BASOPHILS % (AUTO) 1 % (0-1); EOSINOPHILS # (AUTO) 0.26 x10^3/uL (0-0.4); EOSINOPHILS % (AUTO) 8 % (1-7); LYMPHOCYTES # (AUTO) 0.74 x10^3/uL (1-3.4); LYMPHOCYTES % (AUTO) 23 % (22-44); MD SCAN; MEAN CORPUSCULAR HEMOGLOBIN 35.4 pg (27.0-34.8); MEAN CORPUSCULAR HGB CONC 34.2 g/dL (32.4-35.8); MEAN CORPUSCULAR VOLUME 103.3 fL (80-100); MEAN PLATELET VOLUME 9.2 fL (7.4-10.4); MONOCYTES # (AUTO) 0.13 x10^3/uL (0.2-0.8); MONOCYTES % (AUTO) 4 % (2-9); NEUTROPHILS % (AUTO) 64 % (42-75); PLATELET COUNT 76 x10^3/uL (130-400); RED BLOOD COUNT 3.29 x10^6/uL (3.82-5.3); RED CELL DISTRIBUTION WIDTH 14.8 % (9.6-15.2)
[2019-01-14 07:55] VITALS: BP 152/110
[2019-01-14] MEDS: FOLIC ACID 1 MG TABLET PO SCH (08:35)
[2019-01-14] MEDS: SENNA/DOCUSATE TABLET PO SCH (08:35)
[2019-01-14] MEDS: PANCRELIPASE 24,000 CAPSULE.DR PO SCH ×3 (08:35→19:41)
[2019-01-14] MEDS: LACTATED RINGERS 1,000 ML IV SCH ×3 (08:35→19:27)
[2019-01-14] MEDS: PANTOPROZOLE 40MG TABLET PO SCH ×2 (08:35→16:05)
[2019-01-14] MEDS: CHLORDIAZEPOXIDE 25 MG CAPSULE PO SCH ×3 (08:36→21:21)
[2019-01-14] MEDS: LORazepam 1MG TABLET PO PRN ×3 (08:44→16:05)
[2019-01-14 12:35] VITALS: BP 146/88
[2019-01-14] MEDS: CEFTRIAXONE PMX 1GM/50ML 50 ML IV SCH (12:42)
[2019-01-14 15:29] LABS: ACETAMINOPHEN < 2 mcg/mL (10-30); SALICYLATE LEVEL < 1.7 mg/dL (2.8-20.0)
[2019-01-14] MEDS ORDERED: OMNIPAQUE 350 MG/ML, 100ML BOTTLE ONE (17:15)
[2019-01-14 20:00] VITALS: BP 151/88
[2019-01-14] MEDS: POTASSIUM CHLORIDE 20 MEQ, MAGNESIUM SULFATE 1 GM, FOLIC ACID 1 MG, THIAMINE 200 MG, MV... IV SCH (21:21)
[2019-01-15 02:00] VITALS: BP 145/89
[2019-01-15 05:04] LABS: CHLORIDE 109 mmol/L (98-107); MEAN CORPUSCULAR HEMOGLOBIN 36.3 pg (27.0-34.8); MEAN CORPUSCULAR HGB CONC 34.9 g/dL (32.4-35.8); MEAN PLATELET VOLUME 9.3 fL (7.4-10.4); PLATELET COUNT 68 x10^3/uL (130-400); RED BLOOD COUNT 3.09 x10^6/uL (3.82-5.3); RED CELL DISTRIBUTION WIDTH 14.6 % (9.6-15.2)
[2019-01-15 05:11] LABS: ALANINE AMINOTRANSFERASE 49 U/L (12-78); ALBUMIN 2.5 g/dL (3.4-5.0); ALKALINE PHOSPHATASE 376 U/L (45-117); ANION GAP 5 mmol/L (5-15); BILIRUBIN,TOTAL 0.9 mg/dL (0.2-1.0); CALCIUM 7.9 mg/dL (8.5-10.1); CREATININE 0.73 mg/dL (0.55-1.02); TOTAL PROTEIN 5.8 g/dL (6.4-8.2)
[2019-01-15 05:53] LABS: BASOPHILS # (AUTO) 0.03 x10^3/uL (0-0.1); BASOPHILS % (AUTO) 1 % (0-1); EOSINOPHILS # (AUTO) 0.25 x10^3/uL (0-0.4); EOSINOPHILS % (AUTO) 10 % (1-7); LYMPHOCYTES # (AUTO) 0.86 x10^3/uL (1-3.4); LYMPHOCYTES % (AUTO) 35 % (22-44); MD SCAN; MONOCYTES # (AUTO) 0.18 x10^3/uL (0.2-0.8); MONOCYTES % (AUTO) 7 % (2-9); NEUTROPHILS # (AUTO) 1.17 x10^3/uL (1.8-6.8); NEUTROPHILS % (AUTO) 47 % (42-75)
[2019-01-15 07:20] VITALS: BP 142/83
[2019-01-15] MEDS: PANTOPROZOLE 40MG TABLET PO SCH ×2 (08:37→17:36)
[2019-01-15] MEDS: SENNA/DOCUSATE TABLET PO SCH (08:37)
[2019-01-15] MEDS: CHLORDIAZEPOXIDE 25 MG CAPSULE PO SCH ×3 (08:37→21:19)
[2019-01-15] MEDS: PANCRELIPASE 24,000 CAPSULE.DR PO SCH ×3 (08:37→17:00)
[2019-01-15] MEDS: FOLIC ACID 1 MG TABLET PO SCH (08:38)
[2019-01-15] MEDS: CEFTRIAXONE PMX 1GM/50ML 50 ML IV SCH (13:29)
[2019-01-15 14:02] VITALS: BP 139/78
[2019-01-15] MEDS: LACTATED RINGERS 1,000 ML IV SCH (17:00)
[2019-01-15] MEDS: LORazepam 2 MG/ML, 1ML IV PRN (17:36)
[2019-01-15 18:57] VITALS: BP 137/87
[2019-01-15] MEDS: LORazepam 1MG TABLET PO PRN (21:19)
[2019-01-15] MEDS: POTASSIUM CHLORIDE 20 MEQ, MAGNESIUM SULFATE 1 GM, FOLIC ACID 1 MG, THIAMINE 200 MG, MV... IV SCH (21:20)
[2019-01-16 02:26] VITALS: BP 134/87
[2019-01-16 05:21] LABS: MEAN CORPUSCULAR HGB CONC 34.6 g/dL (32.4-35.8); MEAN CORPUSCULAR VOLUME 104.1 fL (80-100); MEAN PLATELET VOLUME 9.6 fL (7.4-10.4); PLATELET COUNT 80 x10^3/uL (130-400); RED CELL DISTRIBUTION WIDTH 14.1 % (9.6-15.2)
[2019-01-16 05:25] LABS: CHLORIDE 107 mmol/L (98-107)
[2019-01-16 05:47] LABS: ALANINE AMINOTRANSFERASE 40 U/L (12-78); ALBUMIN 2.5 g/dL (3.4-5.0); ALKALINE PHOSPHATASE 330 U/L (45-117); ANION GAP 8 mmol/L (5-15); BILIRUBIN,TOTAL 0.5 mg/dL (0.2-1.0); CALCIUM 8.2 mg/dL (8.5-10.1); CREATININE 0.71 mg/dL (0.55-1.02)
[2019-01-16 05:50] LABS: BASOPHILS # (AUTO) 0.03 x10^3/uL (0-0.1); BASOPHILS % (AUTO) 1 % (0-1); EOSINOPHILS # (AUTO) 0.21 x10^3/uL (0-0.4); EOSINOPHILS % (AUTO) 7 % (1-7); LYMPHOCYTES # (AUTO) 1.07 x10^3/uL (1-3.4); LYMPHOCYTES % (AUTO) 36 % (22-44); MD SCAN; MONOCYTES # (AUTO) 0.23 x10^3/uL (0.2-0.8); MONOCYTES % (AUTO) 8 % (2-9); NEUTROPHILS # (AUTO) 1.43 x10^3/uL (1.8-6.8); NEUTROPHILS % (AUTO) 48 % (42-75)
[2019-01-16] MEDS: PANTOPROZOLE 40MG TABLET PO SCH ×2 (07:30→18:15)
[2019-01-16 08:23] VITALS: BP 137/92
[2019-01-16] MEDS: SENNA/DOCUSATE TABLET PO SCH (09:00)
[2019-01-16] MEDS: LORazepam 2 MG/ML, 1ML IV PRN (09:01)
[2019-01-16] MEDS: FOLIC ACID 1 MG TABLET PO SCH (09:02)
[2019-01-16] MEDS: PANCRELIPASE 24,000 CAPSULE.DR PO SCH ×3 (09:02→18:15)
[2019-01-16] MEDS: CHLORDIAZEPOXIDE 25 MG CAPSULE PO SCH (09:02)
[2019-01-16] MEDS: LACTATED RINGERS 1,000 ML IV SCH ×3 (12:00→22:03)
[2019-01-16] MEDS: CEFTRIAXONE PMX 1GM/50ML 50 ML IV SCH (13:15)
[2019-01-16 15:28] VITALS: BP 137/97
[2019-01-16] MEDS: LORazepam 0.5MG TABLET PO PRN (18:15)
[2019-01-16 18:57] VITALS: BP 130/93
[2019-01-17 01:41] VITALS: BP 119/88
[2019-01-17 06:55] VITALS: BP 110/80
[2019-01-17] MEDS: LACTATED RINGERS 1,000 ML IV SCH ×2 (08:50→15:30)
[2019-01-17] MEDS: SENNA/DOCUSATE TABLET PO SCH (09:00)
[2019-01-17 09:18] LABS: MEAN CORPUSCULAR HEMOGLOBIN 35.1 pg (27.0-34.8); MEAN CORPUSCULAR HGB CONC 33.3 g/dL (32.4-35.8); MEAN CORPUSCULAR VOLUME 105.3 fL (80-100); MEAN PLATELET VOLUME 9.2 fL (7.4-10.4); PLATELET COUNT 97 x10^3/uL (130-400); RED BLOOD COUNT 3.31 x10^6/uL (3.82-5.3); RED CELL DISTRIBUTION WIDTH 14.8 % (9.6-15.2)
[2019-01-17] MEDS: PANCRELIPASE 24,000 CAPSULE.DR PO SCH ×3 (09:49→17:58)
[2019-01-17] MEDS: FOLIC ACID 1 MG TABLET PO SCH (09:49)
[2019-01-17] MEDS: CHLORDIAZEPOXIDE 25 MG CAPSULE PO SCH (09:49)
[2019-01-17 10:06] LABS: ALBUMIN 2.7 g/dL (3.4-5.0); ANION GAP 7 mmol/L (5-15); CALCIUM 8.2 mg/dL (8.5-10.1); CHLORIDE 105 mmol/L (98-107); CREATININE 0.96 mg/dL (0.55-1.02)
[2019-01-17 10:31] LABS: ALANINE AMINOTRANSFERASE 31 U/L (12-78); ALKALINE PHOSPHATASE 290 U/L (45-117); BILIRUBIN,TOTAL 0.5 mg/dL (0.2-1.0)
[2019-01-17] MEDS: PANTOPROZOLE 40MG TABLET PO SCH ×2 (11:00→17:58)
[2019-01-17 11:17] LABS: MD YES
[2019-01-17 11:25] LABS: EOS#(MANUAL) 0.19 x10^3/uL (0.0-0.4); EOS% (MANUAL) 6 % (1-7); LYMPH#(MANUAL) 1.02 x10^3/uL (1-3.4); LYMPHS% (MANUAL) 33 % (22-44); MONOS#(MANUAL) 0.09 x10^3/uL (0.3-2.7); MONOS% (MANUAL) 3 % (2-9); SEGS% (MANUAL) 58 % (42-75)
[2019-01-17 11:26] LABS: <PLATELET ESTIMATE> DECREASED; <PLT MORPHOLOGY> NORMAL PLT MORPH
[2019-01-17 13:50] VITALS: BP 125/89
[2019-01-17] MEDS: CEFTRIAXONE PMX 1GM/50ML 50 ML IV SCH (14:53)
[2019-01-17] MEDS: LORazepam 0.5MG TABLET PO PRN (17:58)
[2019-01-17 19:22] VITALS: BP 120/81
[2019-01-18] MEDS: LACTATED RINGERS 1,000 ML IV SCH ×2 (00:09→06:02)
[2019-01-18 00:21] VITALS: BP 116/84
[2019-01-18] MEDS: PANTOPROZOLE 40MG TABLET PO SCH (07:49)
[2019-01-18] MEDS: PANCRELIPASE 24,000 CAPSULE.DR PO SCH (07:49)
[2019-01-18 08:07] VITALS: BP 126/95
[2019-01-18] MEDS ORDERED: OMEP-110 PO (08:14)
[2019-01-18] MEDS: FOLIC ACID 1 MG TABLET PO SCH (08:33)
[2019-01-18] MEDS: SENNA/DOCUSATE TABLET PO SCH (08:33)
[2019-01-18] MEDS: CHLORDIAZEPOXIDE 25 MG CAPSULE PO SCH (08:33)
== END 2019-01-18 11:19 | disposition home or self-care (01) | DRG 432 ==
LOC: ED 12:17 → EDIP 13:00 → 3NE 14:00
PROVIDERS: ADMIT Hospitalist; ATTEND Hospitalist
DX: K70.10 Alcoholic hepatitis without ascites (principal); K85.20 Alcohol induced acute pancreatitis without necrosis or infection; E43 Unspecified severe protein-calorie malnutrition; K86.0 Alcohol-induced chronic pancreatitis; Z68.1 Body mass index [BMI] 19.9 or less, adult; F10.239 Alcohol dependence with withdrawal, unspecified; D69.6 Thrombocytopenia, unspecified; D75.89 Other specified diseases of blood and blood-forming organs; E83.42 Hypomagnesemia; F12.90 Cannabis use, unspecified, uncomplicated; F41.0 Panic disorder [episodic paroxysmal anxiety]; I12.9 Hypertensive chronic kidney disease with stage 1 through stage 4 chronic kidney disease, or unspecified chronic kidney disease; N18.9 Chronic kidney disease, unspecified; F10.229 Alcohol dependence with intoxication, unspecified; I20.9 Angina pectoris, unspecified; N30.90 Cystitis, unspecified without hematuria; Z82.0 Family history of epilepsy and other diseases of the nervous system
CPT/HCPCS: 36415; 87806; 96361; 99285; J7121; 74177; 80053; 80074; 80307; 80329; 81001; 83690; 83735; 84100; 84439; 84443; 85025; 85610; 85730; 87040; 87086; 93005; 96374; G0378; J0696; J2405; J3411; J3475; J3480; Q9967; G0475; G0480; J2060; J2270; J7030; J7120

== ENCOUNTER 2019-02-19 05:23 | Day surgery (SDC) | payer BC ==
[~2019-02-19] VITALS: Ht 175.3 cm; Wt 55.0 kg
[~2019-02-19 05:23] MED LIST changes: +OMEP10CA4 PO
[2019-02-19 06:06] VITALS: BP 125/80
[2019-02-19] MEDS ORDERED: LACTATED RINGERS 1,000 ML IV SCH (06:09)
[2019-02-19 06:30] VITALS: BP 125/80
[2019-02-19] MEDS ORDERED: ZENPEP (06:38)
[2019-02-19] MEDS ORDERED: GABA300C10 PO (06:38)
[2019-02-19] MEDS ORDERED: CHLORHEXIDINE 15 ML UDC ONE (07:50)
[2019-02-19] MEDS ORDERED: PIPERACILLIN/TAZO/PMX 3.375GM 50 ML ONE (07:52)
[2019-02-19] MEDS ORDERED: OXYcodone 5 MG/5 ML ORAL.SOL UDC PO PRN (08:00)
[2019-02-19] MEDS ORDERED: METOPROLOL 1 MG/ML, 5ML IV PRN (08:00)
[2019-02-19] MEDS ORDERED: MIDAZOLAM 1 MG/ML, 2ML IV PRN (08:00)
[2019-02-19] MEDS ORDERED: FENTANYL PF 100 MCG/2ML IV PRN (08:00)
[2019-02-19] MEDS ORDERED: ONDANSETRON 2MG/ML, 2ML IV PRN (08:00)
[2019-02-19] MEDS ORDERED: MIDAZOLAM 1 MG/ML, 2ML ONE (08:18)
[2019-02-19] MEDS ORDERED: PROPOFOL 10 MG/ML, 20ML ONE ×3 (08:22→09:11)
[2019-02-19] MEDS ORDERED: [UNRECOGNIZED DRUG - REMARK] XX PRN (08:30)
[2019-02-19 10:01] LABS: MEAN CORPUSCULAR HEMOGLOBIN 36.3 pg (27.0-34.8); MEAN CORPUSCULAR HGB CONC 34.1 g/dL (32.4-35.8); MEAN CORPUSCULAR VOLUME 106.5 fL (80-100); MEAN PLATELET VOLUME 8.4 fL (7.4-10.4); PLATELET COUNT 50 x10^3/uL (130-400); RED BLOOD COUNT 2.85 x10^6/uL (3.82-5.3); RED CELL DISTRIBUTION WIDTH 14.9 % (9.6-15.2)
[2019-02-19 10:15] LABS: ALBUMIN 2.7 g/dL (3.4-5.0); ANION GAP 6 mmol/L (5-15); CALCIUM 7.7 mg/dL (8.5-10.1); CHLORIDE 109 mmol/L (98-107)
[2019-02-19] MEDS ORDERED: BUPIVACAINE/PF 0.25% ONE (10:15)
[2019-02-19] MEDS ORDERED: ETHYL ALCOHOL 98%, 5 ML ONE (10:15)
[2019-02-19] MEDS ORDERED: TRIAMCINOLONE ACETONIDE 40 MG/ML, 1ML ONE (10:15)
[2019-02-19 10:18] LABS: ALANINE AMINOTRANSFERASE 31 U/L (12-78); ALKALINE PHOSPHATASE 118 U/L (45-117); BILIRUBIN,TOTAL 0.7 mg/dL (0.2-1.0); CREATININE 0.74 mg/dL (0.55-1.02); TOTAL PROTEIN 5.6 g/dL (6.4-8.2)
[2019-02-19 11:33] LABS: BASOPHILS # (AUTO) 0.01 x10^3/uL (0-0.1); BASOPHILS % (AUTO) 0 % (0-1); EOSINOPHILS # (AUTO) 0.04 x10^3/uL (0-0.4); EOSINOPHILS % (AUTO) 2 % (1-7); LYMPHOCYTES # (AUTO) 0.82 x10^3/uL (1-3.4); LYMPHOCYTES % (AUTO) 33 % (22-44); MD SCAN; MONOCYTES # (AUTO) 0.24 x10^3/uL (0.2-0.8); MONOCYTES % (AUTO) 10 % (2-9); NEUTROPHILS # (AUTO) 1.38 x10^3/uL (1.8-6.8); NEUTROPHILS % (AUTO) 56 % (42-75)
[2019-02-19] MEDS ORDERED: OMNIPAQUE 350 MG/ML, 100ML BOTTLE ONE (12:20)
== END 2019-02-19 12:50 | disposition home or self-care (01) ==
LOC: OUT 05:23
PROVIDERS: ATTEND Internal Medicine Gastroenterology
DX: K85.90 Acute pancreatitis without necrosis or infection, unspecified (principal); K86.1 Other chronic pancreatitis; K44.9 Diaphragmatic hernia without obstruction or gangrene; K22.70 Barrett's esophagus without dysplasia; K29.80 Duodenitis without bleeding; K31.5 Obstruction of duodenum; K21.9 Gastro-esophageal reflux disease without esophagitis; R73.03 Prediabetes; F10.239 Alcohol dependence with withdrawal, unspecified; E44.0 Moderate protein-calorie malnutrition; Z68.1 Body mass index [BMI] 19.9 or less, adult; Z88.8 Allergy status to other drugs, medicaments and biological substances; Z86.73 Personal history of transient ischemic attack (TIA), and cerebral infarction without residual deficits; Z98.890 Other specified postprocedural states; Z79.899 Other long term (current) drug therapy
CPT/HCPCS: 36415; 43239; 43259; 74170; 80053; 80307; 82150; 83690; 85025; 86301; 88172; 88173; 88177; 88305; 88307; J2250; J2543; J2704; J3301; J3490; J7120; Q9967

== ENCOUNTER 2019-03-09 10:56 | Inpatient (IN) | payer BC, OTHER ==
[~2019-03-09] VITALS: Ht 175.3 cm; Wt 53.6 kg
[~2019-03-09 10:56] MED LIST changes: +GABA300C10 PO; +ZENPEP
[2019-03-09] MEDS ORDERED: ONDANSETRON 2MG/ML, 2ML ONE (11:28)
[2019-03-09] MEDS ORDERED: LORazepam 2 MG/ML, 1ML ONE ×3 (11:28→14:56)
[2019-03-09] MEDS: LORazepam 2 MG/ML, 1ML IVPush PRN ×4 (11:42→15:03)
--- NOTE | 2019-03-09 11:44 | NUR ---
Assumed care of patient. 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 Hx pancreatitis. Last drink was Saturday. Patient very tremulous and anxious. IV started, NS hung, and meds admin. Placed on NIBP, pulse ox and electronic device monitor. Will continue to monitor.
[2019-03-09] MEDS ORDERED: SODIUM CHLORIDE 0.9% 1,000ML IVBOLUS ONE ×2 (12:00→13:30)
[2019-03-09] MEDS ORDERED: ONDANSETRON 2MG/ML, 2ML IVPush ONE (12:00)
[2019-03-09] MEDS ORDERED: SODIUM CHLORIDE FLUSH 10ML SYR IVF ONE (12:00)
[2019-03-09 12:15] LABS: BASOPHILS # (AUTO) 0.05 x10^3/uL (0-0.1); BASOPHILS % (AUTO) 1 % (0-1); EOSINOPHILS # (AUTO) 0.03 x10^3/uL (0-0.4); EOSINOPHILS % (AUTO) 1 % (1-7); LYMPHOCYTES # (AUTO) 0.95 x10^3/uL (1-3.4); LYMPHOCYTES % (AUTO) 14 % (22-44); MD NO; MEAN CORPUSCULAR HEMOGLOBIN 36.4 pg (27.0-34.8); MEAN CORPUSCULAR HGB CONC 33.8 g/dL (32.4-35.8); MEAN CORPUSCULAR VOLUME 107.7 fL (80-100); MEAN PLATELET VOLUME 8.6 fL (7.4-10.4); MONOCYTES # (AUTO) 0.31 x10^3/uL (0.2-0.8); MONOCYTES % (AUTO) 5 % (2-9); NEUTROPHILS # (AUTO) 5.53 x10^3/uL (1.8-6.8); NEUTROPHILS % (AUTO) 81 % (42-75); PLATELET COUNT 117 x10^3/uL (130-400); RED BLOOD COUNT 3.44 x10^6/uL (3.82-5.3)
[2019-03-09 12:37] LABS: ALBUMIN 3.6 g/dL (3.4-5.0); CALCIUM 8.5 mg/dL (8.5-10.1); CHLORIDE 104 mmol/L (98-107)
[2019-03-09 12:40] LABS: ALANINE AMINOTRANSFERASE 25 U/L (12-78); ALKALINE PHOSPHATASE 172 U/L (45-117); ANION GAP 13 mmol/L (5-15); CREATININE 1.04 mg/dL (0.55-1.02); TOTAL PROTEIN 7.3 g/dL (6.4-8.2)
[2019-03-09 13:00] LABS: CULTURE INDICATED? YES; MICROSCOPIC INDICATED
--- NOTE | 2019-03-09 13:18 | NUR ---
Received bedside report from RADHA Fierro. All questions answered. Assuming care of pt. Provided pt medication per EMAR. NADN. Pt connected to nuclear monitoring technician, NIBP, and continous pulse ox. PIV fluids infusing per EMAR. Both bedrails up for safety measures. Call light within reach. Pt denies cp and sob. CMS intact.
[2019-03-09] MEDS ORDERED: gabapentin PO (13:22)
[2019-03-09] MEDS ORDERED: zofran (13:23)
[2019-03-09] MEDS ORDERED: MAGNESIUM SULFATE PMX 2GM/50ML 50 ML IV ONE (13:30)
[2019-03-09] MEDS ORDERED: POTASSIUM CHLORIDE 40 MEQ in SODIUM CHLORIDE 0.9% 500 ML IV ONE (13:30)
[2019-03-09] MEDS ORDERED: MAGNESIUM SULFATE PMX 2GM/50ML 50 ML ONE (13:35)
--- NOTE | 2019-03-09 14:47 | NUR ---
Pt ambulates with steady gait and balance to restroom. NADN. No other needs expressed at this time.
--- NOTE | 2019-03-09 15:03 | NUR ---
Pt back to dali from bathroom. Pt reconnected to PIV medications. Pt provided medication per EMAR. Both bedrails up for safety measures. Call light within reach. Pt using cellphone and watching t.v.. NADN. No needs expressed at this time.
[2019-03-09] MEDS ORDERED: PROMETHAZINE 25 MG/ML, 1ML IM PRN (16:00)
[2019-03-09] MEDS ORDERED: ONDANSETRON 2MG/ML, 2ML IVPush PRN (16:00)
[2019-03-09] MEDS ORDERED: LORazepam 2 MG/ML, 1ML IV PRN ×4 (16:00)
[2019-03-09] MEDS ORDERED: LORazepam 1MG TABLET PO PRN ×3 (16:00)
[2019-03-09] MEDS ORDERED: ONDANSETRON ODT 4 MG PO PRN (16:00)
[2019-03-09] MEDS ORDERED: LORazepam 0.5MG TABLET PO PRN (16:00)
[2019-03-09] MEDS ORDERED: ENOXAPARIN 40 MG/0.4 ML SQ SCH (16:00)
--- NOTE | 2019-03-09 16:07 | NUR ---
Provided report to RADHA Sweeney. All questions answered. Pt ready to transfer to floor from ED.
[2019-03-09] MEDS: POTASSIUM CHLORIDE 20 MEQ, MAGNESIUM SULFATE 1 GM, THIAMINE 200 MG, FOLIC ACID 1 MG, MV... IV SCH (17:53)
[2019-03-09 19:35] VITALS: BP 121/86
[2019-03-09] MEDS: POTASSIUM CHLORIDE 40 MEQ in LACTATED RINGERS 1,000 ML IV SCH (21:16)
[2019-03-10 00:57] VITALS: BP 122/83
[2019-03-10 05:40] LABS: ALANINE AMINOTRANSFERASE 16 U/L (12-78); ALBUMIN 2.4 g/dL (3.4-5.0); ANION GAP 6 mmol/L (5-15); CALCIUM 7.2 mg/dL (8.5-10.1); CHLORIDE 114 mmol/L (98-107); CREATININE 0.61 mg/dL (0.55-1.02)
[2019-03-10 05:42] LABS: ALKALINE PHOSPHATASE 117 U/L (45-117); BILIRUBIN,TOTAL 1.3 mg/dL (0.2-1.0); TOTAL PROTEIN 5.1 g/dL (6.4-8.2)
[2019-03-10 06:01] LABS: MEAN CORPUSCULAR HEMOGLOBIN 36.3 pg (27.0-34.8); MEAN CORPUSCULAR HGB CONC 32.8 g/dL (32.4-35.8); MEAN CORPUSCULAR VOLUME 110.5 fL (80-100); RED BLOOD COUNT 2.47 x10^6/uL (3.82-5.3); RED CELL DISTRIBUTION WIDTH 17.7 % (9.6-15.2)
[2019-03-10 06:31] LABS: MEAN PLATELET VOLUME 8.8 fL (7.4-10.4); PLATELET COUNT 56 x10^3/uL (130-400)
[2019-03-10 06:34] LABS: BASOPHILS # (AUTO) 0.02 x10^3/uL (0-0.1); BASOPHILS % (AUTO) 1 % (0-1); EOSINOPHILS # (AUTO) 0.11 x10^3/uL (0-0.4); EOSINOPHILS % (AUTO) 4 % (1-7); LYMPHOCYTES # (AUTO) 1.12 x10^3/uL (1-3.4); LYMPHOCYTES % (AUTO) 39 % (22-44); MD SCAN; MONOCYTES # (AUTO) 0.17 x10^3/uL (0.2-0.8); MONOCYTES % (AUTO) 6 % (2-9); NEUTROPHILS # (AUTO) 1.44 x10^3/uL (1.8-6.8); NEUTROPHILS % (AUTO) 50 % (42-75)
[2019-03-10 07:54] VITALS: BP 135/88
[2019-03-10] MEDS: PANTOPRAZOLE 40 MG IV IVPush SCH (08:34)
[2019-03-10] MEDS: POTASSIUM CHLORIDE 40 MEQ in LACTATED RINGERS 1,000 ML IV SCH (10:57)
[2019-03-10 12:53] VITALS: BP 127/85
[2019-03-10 15:23] LABS: THYROID STIMULATING HORMONE 1.38 mIU/L (0.358-3.740)
[2019-03-10] MEDS: POTASSIUM CHLORIDE 20 MEQ, MAGNESIUM SULFATE 1 GM, THIAMINE 200 MG, FOLIC ACID 1 MG, MV... IV SCH (16:52)
[2019-03-10 19:30] LABS: OCCULT BLOOD POSITIVE (NEGATIVE)
[2019-03-10 19:46] VITALS: BP 130/84
[2019-03-11 01:18] VITALS: BP 121/84
[2019-03-11 05:22] LABS: MEAN CORPUSCULAR HEMOGLOBIN 37.5 pg (27.0-34.8); MEAN CORPUSCULAR HGB CONC 33.6 g/dL (32.4-35.8); MEAN CORPUSCULAR VOLUME 111.7 fL (80-100); MEAN PLATELET VOLUME 8.6 fL (7.4-10.4); PLATELET COUNT 59 x10^3/uL (130-400); RED BLOOD COUNT 2.44 x10^6/uL (3.82-5.3); RED CELL DISTRIBUTION WIDTH 17.6 % (9.6-15.2)
[2019-03-11 05:34] LABS: ALBUMIN 2.6 g/dL (3.4-5.0); ANION GAP 6 mmol/L (5-15); CHLORIDE 110 mmol/L (98-107)
[2019-03-11 05:37] LABS: ALANINE AMINOTRANSFERASE 33 U/L (12-78); ALKALINE PHOSPHATASE 163 U/L (45-117); BILIRUBIN,TOTAL 0.9 mg/dL (0.2-1.0); CREATININE 0.57 mg/dL (0.55-1.02); TOTAL PROTEIN 5.4 g/dL (6.4-8.2)
[2019-03-11 05:56] LABS: BASOPHILS # (AUTO) 0.03 x10^3/uL (0-0.1); BASOPHILS % (AUTO) 1 % (0-1); EOSINOPHILS # (AUTO) 0.14 x10^3/uL (0-0.4); EOSINOPHILS % (AUTO) 5 % (1-7); LYMPHOCYTES # (AUTO) 1.16 x10^3/uL (1-3.4); LYMPHOCYTES % (AUTO) 36 % (22-44); MD SCAN; MONOCYTES # (AUTO) 0.18 x10^3/uL (0.2-0.8); MONOCYTES % (AUTO) 6 % (2-9); NEUTROPHILS # (AUTO) 1.69 x10^3/uL (1.8-6.8); NEUTROPHILS % (AUTO) 53 % (42-75)
[2019-03-11 07:39] VITALS: BP 117/74
[2019-03-11] MEDS: PANTOPRAZOLE 40 MG IV IVPush SCH (08:06)
[2019-03-11] MEDS ORDERED: ONDA4TAB13 SL (10:31)
[2019-03-11] MEDS ORDERED: LIPA1CAP PO (10:31)
[2019-03-11] MEDS ORDERED: GABA-826 PO (10:31)
[2019-03-11 13:30] VITALS: BP 119/75
[2019-03-11] MEDS: POTASSIUM CHLORIDE 20 MEQ, MAGNESIUM SULFATE 1 GM, THIAMINE 200 MG, FOLIC ACID 1 MG, MV... IV SCH (16:45)
[2019-03-11] MEDS ORDERED: GOLYTELY 4,000ML ORAL.SOL PO ONE (19:00)
[2019-03-11 19:55] VITALS: BP 131/84
[2019-03-12 02:20] VITALS: BP 124/83
[2019-03-12 03:39] LABS: ALBUMIN 2.7 g/dL (3.4-5.0); ANION GAP 4 mmol/L (5-15); CHLORIDE 108 mmol/L (98-107)
[2019-03-12 03:42] LABS: ALANINE AMINOTRANSFERASE 26 U/L (12-78); ALKALINE PHOSPHATASE 141 U/L (45-117); BILIRUBIN,TOTAL 0.5 mg/dL (0.2-1.0); CREATININE 0.62 mg/dL (0.55-1.02); TOTAL PROTEIN 5.5 g/dL (6.4-8.2)
[2019-03-12 04:01] LABS: MEAN CORPUSCULAR HEMOGLOBIN 37.5 pg (27.0-34.8); MEAN CORPUSCULAR HGB CONC 33.8 g/dL (32.4-35.8); MEAN CORPUSCULAR VOLUME 110.7 fL (80-100); RED BLOOD COUNT 2.33 x10^6/uL (3.82-5.3); RED CELL DISTRIBUTION WIDTH 18.3 % (9.6-15.2)
[2019-03-12 04:04] LABS: BASOPHILS # (AUTO) 0.02 x10^3/uL (0-0.1); BASOPHILS % (AUTO) 1 % (0-1); EOSINOPHILS # (AUTO) 0.08 x10^3/uL (0-0.4); EOSINOPHILS % (AUTO) 3 % (1-7); LYMPHOCYTES # (AUTO) 0.96 x10^3/uL (1-3.4); LYMPHOCYTES % (AUTO) 37 % (22-44); MD SCAN; MEAN PLATELET VOLUME 8.4 fL (7.4-10.4); MONOCYTES # (AUTO) 0.22 x10^3/uL (0.2-0.8); MONOCYTES % (AUTO) 8 % (2-9); NEUTROPHILS % (AUTO) 50 % (42-75); PLATELET COUNT 72 x10^3/uL (130-400)
[2019-03-12 08:30] VITALS: BP 132/81
[2019-03-12] MEDS: PANTOPRAZOLE 40 MG IV IVPush SCH (09:52)
[2019-03-12 10:01] VITALS: BP 136/86
[2019-03-12 13:10] VITALS: BP 128/91
[2019-03-12] MEDS ORDERED: SIMETHICONE DROPS 40 MG/0.6 ML BOTTLE ONE (14:38)
[2019-03-12] MEDS ORDERED: MIDAZOLAM 1 MG/ML, 2ML ONE (14:38)
[2019-03-12] MEDS ORDERED: FENTANYL PF 250 MCG/5ML ONE (14:38)
[2019-03-12] MEDS ORDERED: SUCCINYLCHOLINE 20 MG/ML, 10ML ONE (14:40)
[2019-03-12] MEDS ORDERED: PROPOFOL 10 MG/ML, 20ML ONE (14:40)
[2019-03-12] MEDS ORDERED: OXYcodone 5 MG/5 ML ORAL.SOL UDC PO PRN (15:00)
[2019-03-12] MEDS ORDERED: hydrALAzine 20 MG/ML, 1ML IV PRN (15:00)
[2019-03-12] MEDS ORDERED: PROMETHAZINE 25 MG/ML, 1ML IV PRN (15:00)
[2019-03-12] MEDS ORDERED: FENTANYL PF 100 MCG/2ML IV PRN (15:00)
[2019-03-12] MEDS ORDERED: HALOPERIDOL 5 MG/ML IV PRN (15:00)
[2019-03-12] MEDS ORDERED: MEPERIDINE/PF 25MG/0.5ML IVPush PRN (15:00)
[2019-03-12] MEDS ORDERED: LORazepam 2 MG/ML, 1ML IVPush PRN (15:00)
[2019-03-12] MEDS ORDERED: HYDROmorphone 2 MG/ML, 1ML IVPush PRN (15:00)
[2019-03-12 19:22] VITALS: BP 114/75
[2019-03-12] MEDS ORDERED: ACETAMINOPHEN 325 MG TABLET PO PRN (23:00)
[2019-03-13 01:07] VITALS: BP 104/66
[2019-03-13 08:20] VITALS: BP 101/70
[2019-03-13] MEDS ORDERED: FOLIC ACID 1 MG TABLET PO SCH (09:00)
[2019-03-13] MEDS ORDERED: MULTIVITAMINS WITH IRON TABLET PO SCH (09:00)
[2019-03-13] MEDS ORDERED: THIAMINE 100MG TABLET PO SCH (09:00)
[2019-03-13] MEDS ORDERED: HYDROCORTISONE 25 MG SUPP PR SCH (09:00)
[2019-03-13 09:06] LABS: ALBUMIN 2.8 g/dL (3.4-5.0); ANION GAP 7 mmol/L (5-15); CALCIUM 8.3 mg/dL (8.5-10.1); CHLORIDE 109 mmol/L (98-107)
[2019-03-13] MEDS: PANTOPRAZOLE 40 MG IV IVPush SCH (09:07)
[2019-03-13 09:10] LABS: ALANINE AMINOTRANSFERASE 24 U/L (12-78); ALKALINE PHOSPHATASE 140 U/L (45-117); BILIRUBIN,TOTAL 0.6 mg/dL (0.2-1.0); CREATININE 0.64 mg/dL (0.55-1.02); TOTAL PROTEIN 5.7 g/dL (6.4-8.2)
[2019-03-13 09:29] LABS: BASOPHILS # (AUTO) 0.02 x10^3/uL (0-0.1); BASOPHILS % (AUTO) 1 % (0-1); EOSINOPHILS % (AUTO) 4 % (1-7); LYMPHOCYTES # (AUTO) 0.91 x10^3/uL (1-3.4); LYMPHOCYTES % (AUTO) 40 % (22-44); MD SCAN; MEAN CORPUSCULAR HEMOGLOBIN 37.8 pg (27.0-34.8); MEAN CORPUSCULAR HGB CONC 34.3 g/dL (32.4-35.8); MEAN CORPUSCULAR VOLUME 110.2 fL (80-100); MEAN PLATELET VOLUME 7.6 fL (7.4-10.4); MONOCYTES # (AUTO) 0.25 x10^3/uL (0.2-0.8); MONOCYTES % (AUTO) 11 % (2-9); NEUTROPHILS # (AUTO) 0.99 x10^3/uL (1.8-6.8); NEUTROPHILS % (AUTO) 44 % (42-75); PLATELET COUNT 92 x10^3/uL (130-400); RED BLOOD COUNT 2.46 x10^6/uL (3.82-5.3); RED CELL DISTRIBUTION WIDTH 19.1 % (9.6-15.2)
[2019-03-13] MEDS ORDERED: HYDR25SU3 PR (09:37)
[2019-03-13] MEDS ORDERED: MULT1TAB81 PO (09:37)
[2019-03-14] MEDS ORDERED: PANTOPROZOLE 40MG TABLET PO SCH (07:30)
== END 2019-03-13 11:24 | disposition home or self-care (01) | DRG 433 ==
LOC: ED 13:38 → EDIP 15:23 → 4WST 16:19 → DCLOUNGE 03-13 11:13
PROVIDERS: ADMIT Orthopaedic Surgery Orthopaedic Surgery of the Spine; ATTEND Orthopaedic Surgery Orthopaedic Surgery of the Spine
PROC: 0DJD8ZZ Inspection of Lower Intestinal Tract, Via Natural or Artificial Opening Endoscopic (ICD-10-PCS; 2019-03-12)
PROC: 0DB98ZX Excision of Duodenum, Via Natural or Artificial Opening Endoscopic, Diagnostic (ICD-10-PCS; principal; 2019-03-12 14:30)
DX: K70.9 Alcoholic liver disease, unspecified (principal); D61.818 Other pancytopenia; E87.2 Acidosis; F10.239 Alcohol dependence with withdrawal, unspecified; K86.1 Other chronic pancreatitis; K92.1 Melena; D53.9 Nutritional anemia, unspecified; E83.42 Hypomagnesemia; E87.6 Hypokalemia; I10 Essential (primary) hypertension; K64.8 Other hemorrhoids; Z82.0 Family history of epilepsy and other diseases of the nervous system; Z90.49 Acquired absence of other specified parts of digestive tract
CPT/HCPCS: 36415; 74018; 80053; 80307; 81001; 82272; 82607; 82728; 83540; 83550; 83605; 83690; 83735; 84100; 84443; 84466; 85014; 85018; 85025; 87086; 88305; 93005; 96361; 96365; 96375; G0378; J2250; J2405; J2704; J3010; J3411; J3475; J3480; C9113; J0330; J2060; J7030; J7040; J7120

== ENCOUNTER 2019-07-15 18:32 | Inpatient (IN) | payer MEDICAID ==
[~2019-07-15] VITALS: Ht 175.3 cm; Wt 59.6 kg
[~2019-07-15 18:32] MED LIST changes: +HYDR25SU3 PR; +LIPA1CAP PO; +MULT1TAB81 PO; -OMEP10CA4 PO; +OMEP10CA5 PO; +ONDA4TAB13 SL; +gabapentin PO; +zofran
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
--- NOTE | 2019-07-15 19:03 | NUR ---
SIDE RAILS UP X2, SEIZURE PADS PLACED, CALL LIGHT W/IN REACH. PT AWAITING ERP EXAM. PT SISTER IN ROOM.
[2019-07-15] MEDS ORDERED: SODIUM CHLORIDE FLUSH 10ML SYR IVF ONE (20:00)
[2019-07-15] MEDS ORDERED: SODIUM CHLORIDE 0.9% 1,000ML IVBOLUS ONE (20:00)
[2019-07-15 20:04] LABS: ALANINE AMINOTRANSFERASE 26 U/L (12-78); ALBUMIN 2.7 g/dL (3.4-5.0); CALCIUM 7.4 mg/dL (8.5-10.1); CHLORIDE 98 mmol/L (98-107); CREATININE 0.85 mg/dL (0.55-1.02); INTERNATIONAL NORMALIZED RATIO 1.36 (0.93-1.1); PROTHROMBIN TIME 14.1 Seconds (9.6-11.5)
[2019-07-15 20:07] LABS: ALKALINE PHOSPHATASE 161 U/L (45-117); BILIRUBIN,TOTAL 2.3 mg/dL (0.2-1.0); TOTAL PROTEIN 5.7 g/dL (6.4-8.2)
[2019-07-15 20:10] LABS: ANION GAP 11 mmol/L (5-15)
--- NOTE | 2019-07-15 20:20 | NUR ---
PT AMBULATORY TO & FROM BR W/OUT INCIDENT, ACCOMPANIED BY SISTER & THIS RN. GAIT SLOW & STEADY. VOIDED URINE SPECIMEN PROVIDED: CLEAR DARK YELLOW
[2019-07-15 20:23] LABS: BASOPHILS # (AUTO) 0.01 x10^3/uL (0-0.1); BASOPHILS % (AUTO) 0 % (0-1); EOSINOPHILS # (AUTO) 0.01 x10^3/uL (0-0.4); EOSINOPHILS % (AUTO) 0 % (1-7); LYMPHOCYTES # (AUTO) 0.53 x10^3/uL (1-3.4); LYMPHOCYTES % (AUTO) 20 % (22-44); MD MORPH REVIEW ONLY; MEAN CORPUSCULAR HGB CONC 32.5 g/dL (32.4-35.8); MEAN CORPUSCULAR VOLUME 117.1 fL (80-100); MEAN PLATELET VOLUME 9.6 fL (7.4-10.4); MONOCYTES # (AUTO) 0.19 x10^3/uL (0.2-0.8); MONOCYTES % (AUTO) 7 % (2-9); NEUTROPHILS % (AUTO) 73 % (42-75); PLATELET COUNT 49 x10^3/uL (130-400); RED BLOOD COUNT 2.27 x10^6/uL (3.82-5.3); RED CELL DISTRIBUTION WIDTH 19.2 % (9.6-15.2)
--- NOTE | 2019-07-15 20:23 | NUR ---
TO CT PER CHASITY
[2019-07-15 20:24] LABS: ANISOCYTOSIS 1+; HEMOGRAM NOTE RECHECKED
[2019-07-15 20:25] LABS: <PLATELET ESTIMATE> DECREASED; <PLT MORPHOLOGY> NORMAL PLT MORPH
--- NOTE | 2019-07-15 20:32 | NUR ---
DR MACIEL IN ROOM DISCUSSING POC W/ PT'S SISTER. PT CURRENTLY IN CT.
--- NOTE | 2019-07-15 20:32 | NUR ---
PT RETURNED FROM CT. DR MACIEL DISCUSSING POC W/ PT. VO: CHANGE NS BOLUS TO NS/POTASSIUM DRIP - ORDER TO BE ENTERED.
[2019-07-15] MEDS ORDERED: POTASSIUM CHLORIDE 40 MEQ in SODIUM CHLORIDE 0.9% 1,000 ML IV ONE (20:36)
[2019-07-15] MEDS ORDERED: NS + 40MEQ KCL 1,000 ML IV ONE (21:13)
--- NOTE | 2019-07-15 21:22 | NUR ---
KCL 40 MEQ IN 0.9% NS HUNG, INFUSING AT 250ML/HR VIA PUMP. IV SITE PATENT.
[2019-07-15] MEDS ORDERED: SODIUM CHLORIDE FLUSH 10ML SYR IVF PRN (21:30)
[2019-07-15] MEDS ORDERED: POTASSIUM CHLORIDE 20 MEQ TAB.ER.PRT PO ONE (21:30)
[2019-07-15] MEDS ORDERED: MAGNESIUM SULFATE 1 GM in SODIUM CHLORIDE 0.9% 50 ML IV ONE (21:30)
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
[2019-07-15] MEDS ORDERED: POTASSIUM CHLORIDE 20 MEQ TAB.ER.PRT ONE (21:39)
--- NOTE | 2019-07-15 21:52 | NUR ---
KDUR PO GIVEN PER EMAR. MAGNESIUM SULFATE HUNG, INFUSING AT 52ML/HR VIA PUMP THROUGH RT HAND IV; IV SITE PATENT.
[2019-07-15] MEDS ORDERED: ONDANSETRON 2MG/ML, 2ML IVPush PRN (22:00)
[2019-07-15] MEDS ORDERED: LORazepam 2 MG/ML, 1ML IVPush PRN (22:00)
[2019-07-15] MEDS ORDERED: BISACODYL 10 MG SUPP PR PRN (22:00)
[2019-07-15] MEDS ORDERED: THIAMINE 100MG TABLET PO ONE (22:00)
[2019-07-15] MEDS ORDERED: CHLORDIAZEPOXIDE 25 MG CAPSULE PO PRN (22:00)
[2019-07-15] MEDS ORDERED: POLYETHYLENE GLYCOL 17 GM PACKET PO PRN (22:00)
--- NOTE | 2019-07-15 22:06 | NUR ---
PT REPORT TO RADHA MCCLURE FOR ROOM 492-2
[2019-07-15] MEDS ORDERED: NS + 40MEQ KCL 1,000 ML IV SCH (22:25)
[2019-07-15] MEDS: OMEPRAZOLE 20 MG CAPSULE.DR PO SCH (22:45)
[2019-07-15 22:48] VITALS: BP 124/91
[2019-07-16] MEDS: PANTOPRAZOLE 40 MG IV IVPush SCH ×2 (01:16→13:22)
[2019-07-16 01:47] LABS: CLOSTRIDIUM DIFFICILE ANTIGEN POSITIVE; CLOSTRIDIUM DIFFICILE TOXIN NEGATIVE (Negative)
[2019-07-16 04:38] VITALS: BP 130/84
[2019-07-16 07:30] LABS: MEAN CORPUSCULAR HEMOGLOBIN 39.3 pg (27.0-34.8); MEAN CORPUSCULAR HGB CONC 33.7 g/dL (32.4-35.8); MEAN CORPUSCULAR VOLUME 116.5 fL (80-100); RED BLOOD COUNT 2.02 x10^6/uL (3.82-5.3); RED CELL DISTRIBUTION WIDTH 19.2 % (9.6-15.2)
[2019-07-16 07:35] LABS: ALANINE AMINOTRANSFERASE 21 U/L (12-78); ALBUMIN 2.2 g/dL (3.4-5.0); ANION GAP 8 mmol/L (5-15); CALCIUM 6.8 mg/dL (8.5-10.1); CHLORIDE 109 mmol/L (98-107); CREATININE 0.58 mg/dL (0.55-1.02)
[2019-07-16 07:37] LABS: ALKALINE PHOSPHATASE 137 U/L (45-117); BILIRUBIN,TOTAL 1.5 mg/dL (0.2-1.0); TOTAL PROTEIN 4.9 g/dL (6.4-8.2)
[2019-07-16 07:58] LABS: MEAN PLATELET VOLUME 8.7 fL (7.4-10.4)
[2019-07-16 08:01] LABS: MD YES; PLATELET COUNT 38 x10^3/uL (130-400)
[2019-07-16 08:07] LABS: BAND#(MANUAL) 0.02 x10^3/uL; BANDS%(MANUAL) 1 % (0-7); BASOS#(MANUAL) 0.02 x10^3/uL (0-0.1); BASOS% (MANUAL) 1 % (0-1); EOS#(MANUAL) 0.02 x10^3/uL (0.0-0.4); EOS% (MANUAL) 1 % (1-7); LYMPH#(MANUAL) 0.68 x10^3/uL (1-3.4); LYMPHS% (MANUAL) 36 % (22-44); MONOS#(MANUAL) 0.06 x10^3/uL (0.3-2.7); MONOS% (MANUAL) 3 % (2-9); SEGS% (MANUAL) 58 % (42-75)
[2019-07-16 08:08] LABS: ANISOCYTOSIS 1+
[2019-07-16 08:09] LABS: <PLATELET ESTIMATE> DECREASED; <PLT MORPHOLOGY> NORMAL PLT MORPH
[2019-07-16 08:20] VITALS: BP 122/80
[2019-07-16] MEDS ORDERED: LORazepam 0.5MG TABLET PO PRN (08:30)
[2019-07-16] MEDS ORDERED: LORazepam 1MG TABLET PO PRN ×2 (08:30)
[2019-07-16] MEDS ORDERED: LORazepam 2 MG/ML, 1ML IV PRN ×4 (08:30)
[2019-07-16] MEDS: SENNA/DOCUSATE TABLET PO SCH (09:00)
[2019-07-16] MEDS ORDERED: POTASSIUM CHLORIDE 20 MEQ TAB.ER.PRT PO SCH (09:00)
[2019-07-16] MEDS ORDERED: MAGNESIUM SULFATE PMX 4GM/100M 100 ML IV ONE (09:00)
[2019-07-16] MEDS: OMEPRAZOLE 20 MG CAPSULE.DR PO SCH ×2 (09:10→17:14)
[2019-07-16] MEDS: FOLIC ACID 1 MG TABLET PO SCH (09:10)
[2019-07-16] MEDS: MULTIVITAMINS/MINERALS TABLET PO SCH (09:10)
[2019-07-16 13:03] VITALS: BP 117/79
[2019-07-16 19:45] VITALS: BP 120/73
[2019-07-16] MEDS: HYDROCORTISONE 25 MG SUPP PR SCH (21:00)
[2019-07-17] MEDS: PANTOPRAZOLE 40 MG IV IVPush SCH ×2 (01:23→14:38)
[2019-07-17 01:25] VITALS: BP 134/89
[2019-07-17 08:16] VITALS: BP 142/88
[2019-07-17] MEDS: HYDROCORTISONE 25 MG SUPP PR SCH ×2 (09:00→21:00)
[2019-07-17] MEDS: SENNA/DOCUSATE TABLET PO SCH (09:00)
[2019-07-17] MEDS: MULTIVITAMINS/MINERALS TABLET PO SCH (10:10)
[2019-07-17] MEDS: OMEPRAZOLE 20 MG CAPSULE.DR PO SCH ×2 (10:10→19:39)
[2019-07-17] MEDS: FOLIC ACID 1 MG TABLET PO SCH (10:10)
[2019-07-17 11:25] LABS: CHLORIDE 106 mmol/L (98-107)
[2019-07-17 11:30] LABS: ALANINE AMINOTRANSFERASE 23 U/L (12-78); ALBUMIN 2.2 g/dL (3.4-5.0); ALKALINE PHOSPHATASE 147 U/L (45-117); ANION GAP 7 mmol/L (5-15); BILIRUBIN,TOTAL 1.3 mg/dL (0.2-1.0); CALCIUM 7.2 mg/dL (8.5-10.1); CREATININE 0.54 mg/dL (0.55-1.02); TOTAL PROTEIN 5.1 g/dL (6.4-8.2)
[2019-07-17 11:37] LABS: MEAN CORPUSCULAR HEMOGLOBIN 38.8 pg (27.0-34.8); MEAN CORPUSCULAR HGB CONC 32.7 g/dL (32.4-35.8); MEAN CORPUSCULAR VOLUME 118.7 fL (80-100); MEAN PLATELET VOLUME 8.5 fL (7.4-10.4); PLATELET COUNT 53 x10^3/uL (130-400); RED CELL DISTRIBUTION WIDTH 19.6 % (9.6-15.2)
[2019-07-17 11:38] LABS: MD YES
[2019-07-17 11:41] LABS: <PLATELET ESTIMATE> DECREASED; <PLT MORPHOLOGY> NORMAL PLT MORPH; ANISOCYTOSIS 1+; EOS#(MANUAL) 0.03 x10^3/uL (0.0-0.4); EOS% (MANUAL) 2 % (1-7); LYMPH#(MANUAL) 0.27 x10^3/uL (1-3.4); LYMPHS% (MANUAL) 16 % (22-44); MONOS#(MANUAL) 0.05 x10^3/uL (0.3-2.7); MONOS% (MANUAL) 3 % (2-9); SEG#(MANUAL) 1.34 x10^3/uL (1.8-6.8); SEGS% (MANUAL) 79 % (42-75)
[2019-07-17 11:42] LABS: POLYCHROMASIA 1+; TEAR DROPS 1+
[2019-07-17] MEDS ORDERED: POTASSIUM CHLORIDE 20 MEQ TAB.ER.PRT PO SCH ×2 (12:00→17:00)
[2019-07-17] MEDS ORDERED: POTASSIUM CHLORIDE PMX 100 ML IV ONE (12:00)
[2019-07-17] MEDS ORDERED: POTASSIUM CHLORIDE 20 MEQ in SODIUM CHLORIDE 0.9% 250 ML IV ONE (13:00)
[2019-07-17] MEDS ORDERED: GADOTERATE 7.5 MMOL/15 ML SYR ONE (13:34)
[2019-07-17 14:00] VITALS: BP 126/81
[2019-07-17 18:39] VITALS: BP 126/84
[2019-07-18 01:45] VITALS: BP 130/87
[2019-07-18] MEDS: PANTOPRAZOLE 40 MG IV IVPush SCH (02:05)
[2019-07-18 05:46] LABS: MEAN CORPUSCULAR HGB CONC 32.9 g/dL (32.4-35.8); MEAN CORPUSCULAR VOLUME 118.6 fL (80-100); MEAN PLATELET VOLUME 8.6 fL (7.4-10.4); PLATELET COUNT 62 x10^3/uL (130-400); RED BLOOD COUNT 2.32 x10^6/uL (3.82-5.3); RED CELL DISTRIBUTION WIDTH 19.8 % (9.6-15.2)
[2019-07-18 05:53] LABS: CHLORIDE 108 mmol/L (98-107)
[2019-07-18 06:04] LABS: ALANINE AMINOTRANSFERASE 24 U/L (12-78); ALBUMIN 2.2 g/dL (3.4-5.0); ALKALINE PHOSPHATASE 147 U/L (45-117); ANION GAP 5 mmol/L (5-15); BILIRUBIN,TOTAL 1.2 mg/dL (0.2-1.0); CALCIUM 7.6 mg/dL (8.5-10.1); CREATININE 0.57 mg/dL (0.55-1.02); TOTAL PROTEIN 5.1 g/dL (6.4-8.2)
[2019-07-18 06:31] LABS: BASOPHILS # (AUTO) 0.02 x10^3/uL (0-0.1); BASOPHILS % (AUTO) 1 % (0-1); EOSINOPHILS # (AUTO) 0.05 x10^3/uL (0-0.4); EOSINOPHILS % (AUTO) 3 % (1-7); LYMPHOCYTES # (AUTO) 0.72 x10^3/uL (1-3.4); LYMPHOCYTES % (AUTO) 37 % (22-44); MD SCAN; MONOCYTES # (AUTO) 0.25 x10^3/uL (0.2-0.8); MONOCYTES % (AUTO) 13 % (2-9); NEUTROPHILS % (AUTO) 46 % (42-75)
[2019-07-18 07:15] VITALS: BP 138/88
[2019-07-18] MEDS ORDERED: POTASSIUM PHOSPHATE 44 MEQ in SODIUM CHLORIDE 0.9% 500 ML IV ONE (08:00)
[2019-07-18] MEDS: SENNA/DOCUSATE TABLET PO SCH (09:00)
[2019-07-18] MEDS: FOLIC ACID 1 MG TABLET PO SCH (09:28)
[2019-07-18] MEDS: MULTIVITAMINS/MINERALS TABLET PO SCH (09:29)
[2019-07-18] MEDS: HYDROCORTISONE 25 MG SUPP PR SCH ×2 (09:29→20:10)
[2019-07-18 12:38] VITALS: BP 134/85
[2019-07-18] MEDS: VANCOMYCIN 50 MG/ML ORAL SUSP PO SCH ×2 (15:38→21:20)
[2019-07-18] MEDS: OMEPRAZOLE 20 MG CAPSULE.DR PO SCH (15:38)
[2019-07-18] MEDS ORDERED: HYDROCORTISONE/PRAM CRM 2.5-1%, 4GM EXT PRN (17:00)
[2019-07-18 20:13] VITALS: BP 130/82
[2019-07-18 21:58] LABS: MEAN CORPUSCULAR HEMOGLOBIN 38.7 pg (27.0-34.8); MEAN CORPUSCULAR HGB CONC 32.5 g/dL (32.4-35.8); MEAN CORPUSCULAR VOLUME 119.1 fL (80-100); MEAN PLATELET VOLUME 8.6 fL (7.4-10.4); PLATELET COUNT 79 x10^3/uL (130-400); RED BLOOD COUNT 2.13 x10^6/uL (3.82-5.3); RED CELL DISTRIBUTION WIDTH 19.9 % (9.6-15.2)
[2019-07-18 22:13] LABS: MD YES
[2019-07-18 22:17] LABS: ANISOCYTOSIS 1+; EOS#(MANUAL) 0.02 x10^3/uL (0.0-0.4); EOS% (MANUAL) 1 % (1-7); LYMPH#(MANUAL) 0.61 x10^3/uL (1-3.4); LYMPHS% (MANUAL) 32 % (22-44); MONOS#(MANUAL) 0.17 x10^3/uL (0.3-2.7); MONOS% (MANUAL) 9 % (2-9); SEGS% (MANUAL) 58 % (42-75)
[2019-07-18 22:18] LABS: <PLATELET ESTIMATE> DECREASED; <PLT MORPHOLOGY> NORMAL PLT MORPH; POLYCHROMASIA 1+
[2019-07-19 01:47] VITALS: BP 131/91
[2019-07-19] MEDS: VANCOMYCIN 50 MG/ML ORAL SUSP PO SCH ×4 (03:41→20:22)
[2019-07-19 05:36] LABS: ALBUMIN 2.1 g/dL (3.4-5.0); ANION GAP 4 mmol/L (5-15); CALCIUM 7.9 mg/dL (8.5-10.1); CHLORIDE 111 mmol/L (98-107)
[2019-07-19 05:37] LABS: MEAN CORPUSCULAR HEMOGLOBIN 38.5 pg (27.0-34.8); MEAN CORPUSCULAR HGB CONC 32.8 g/dL (32.4-35.8); MEAN CORPUSCULAR VOLUME 117.4 fL (80-100); MEAN PLATELET VOLUME 8.8 fL (7.4-10.4); PLATELET COUNT 73 x10^3/uL (130-400); RED BLOOD COUNT 2.18 x10^6/uL (3.82-5.3); RED CELL DISTRIBUTION WIDTH 19.6 % (9.6-15.2)
[2019-07-19 05:41] LABS: ALANINE AMINOTRANSFERASE 25 U/L (12-78); ALKALINE PHOSPHATASE 130 U/L (45-117); BILIRUBIN,TOTAL 0.7 mg/dL (0.2-1.0); CREATININE 0.56 mg/dL (0.55-1.02); TOTAL PROTEIN 4.9 g/dL (6.4-8.2)
[2019-07-19 06:17] LABS: MD YES
[2019-07-19 06:21] LABS: EOS#(MANUAL) 0.05 x10^3/uL (0.0-0.4); EOS% (MANUAL) 3 % (1-7); LYMPH#(MANUAL) 0.77 x10^3/uL (1-3.4); LYMPHS% (MANUAL) 48 % (22-44); MONOS#(MANUAL) 0.19 x10^3/uL (0.3-2.7); MONOS% (MANUAL) 12 % (2-9); SEG#(MANUAL) 0.59 x10^3/uL (1.8-6.8); SEGS% (MANUAL) 37 % (42-75)
[2019-07-19 06:22] LABS: <PLATELET ESTIMATE> DECREASED; <PLT MORPHOLOGY> NORMAL PLT MORPH; ANISOCYTOSIS 1+; POLYCHROMASIA 1+
[2019-07-19] MEDS: OMEPRAZOLE 20 MG CAPSULE.DR PO SCH ×2 (06:24→15:38)
[2019-07-19 08:00] VITALS: BP 147/89
[2019-07-19] MEDS ORDERED: MAGNESIUM SULFATE 1 GM in SODIUM CHLORIDE 0.9% 50 ML IV ONE (08:00)
[2019-07-19] MEDS: HYDROCORTISONE 25 MG SUPP PR SCH ×2 (09:22→20:22)
[2019-07-19] MEDS: FOLIC ACID 1 MG TABLET PO SCH (09:23)
[2019-07-19] MEDS: MULTIVITAMINS/MINERALS TABLET PO SCH (09:23)
[2019-07-19 09:52] LABS: MD YES; MEAN CORPUSCULAR HEMOGLOBIN 38.3 pg (27.0-34.8); MEAN CORPUSCULAR HGB CONC 32.7 g/dL (32.4-35.8); MEAN CORPUSCULAR VOLUME 117.3 fL (80-100); MEAN PLATELET VOLUME 8.6 fL (7.4-10.4); PLATELET COUNT 91 x10^3/uL (130-400); RED BLOOD COUNT 2.42 x10^6/uL (3.82-5.3); RED CELL DISTRIBUTION WIDTH 19.9 % (9.6-15.2)
[2019-07-19 09:57] LABS: <PLATELET ESTIMATE> DECREASED; <PLT MORPHOLOGY> NORMAL PLT MORPH; ANISOCYTOSIS 1+; BASOS#(MANUAL) 0.02 x10^3/uL (0-0.1); BASOS% (MANUAL) 1 % (0-1); EOS% (MANUAL) 5 % (1-7); LYMPH#(MANUAL) 0.72 x10^3/uL (1-3.4); LYMPHS% (MANUAL) 36 % (22-44); MONOS#(MANUAL) 0.16 x10^3/uL (0.3-2.7); MONOS% (MANUAL) 8 % (2-9); POLYCHROMASIA 1+; SEGS% (MANUAL) 50 % (42-75)
[2019-07-19 14:00] VITALS: BP 130/82
[2019-07-19 19:16] VITALS: BP 133/91
[2019-07-20 01:53] VITALS: BP 138/86
[2019-07-20] MEDS: VANCOMYCIN 50 MG/ML ORAL SUSP PO SCH ×4 (04:30→19:59)
[2019-07-20 05:35] LABS: MEAN CORPUSCULAR HEMOGLOBIN 38.6 pg (27.0-34.8); MEAN CORPUSCULAR HGB CONC 32.4 g/dL (32.4-35.8); MEAN PLATELET VOLUME 9.4 fL (7.4-10.4); PLATELET COUNT 93 x10^3/uL (130-400); RED BLOOD COUNT 2.23 x10^6/uL (3.82-5.3)
[2019-07-20 05:39] LABS: ALANINE AMINOTRANSFERASE 27 U/L (12-78); ALBUMIN 2.2 g/dL (3.4-5.0); ANION GAP 4 mmol/L (5-15); CALCIUM 7.9 mg/dL (8.5-10.1); CHLORIDE 109 mmol/L (98-107); CREATININE 0.55 mg/dL (0.55-1.02)
[2019-07-20 05:41] LABS: ALKALINE PHOSPHATASE 121 U/L (45-117); BILIRUBIN,TOTAL 0.6 mg/dL (0.2-1.0); TOTAL PROTEIN 5.2 g/dL (6.4-8.2)
[2019-07-20 05:51] LABS: MD YES
[2019-07-20 05:54] LABS: EOS#(MANUAL) 0.02 x10^3/uL (0.0-0.4); EOS% (MANUAL) 1 % (1-7); LYMPH#(MANUAL) 0.91 x10^3/uL (1-3.4); LYMPHS% (MANUAL) 48 % (22-44)
[2019-07-20 05:55] LABS: <PLATELET ESTIMATE> DECREASED; <PLT MORPHOLOGY> NORMAL PLT MORPH; ANISOCYTOSIS 1+; MONOS#(MANUAL) 0.23 x10^3/uL (0.3-2.7); MONOS% (MANUAL) 12 % (2-9); POLYCHROMASIA 1+; SEG#(MANUAL) 0.74 x10^3/uL (1.8-6.8); SEGS% (MANUAL) 39 % (42-75)
[2019-07-20] MEDS: OMEPRAZOLE 20 MG CAPSULE.DR PO SCH ×2 (06:08→15:34)
[2019-07-20 09:00] VITALS: BP 137/87
[2019-07-20] MEDS: HYDROCORTISONE 25 MG SUPP PR SCH ×2 (09:15→20:01)
[2019-07-20] MEDS: FOLIC ACID 1 MG TABLET PO SCH (09:15)
[2019-07-20] MEDS: MULTIVITAMINS/MINERALS TABLET PO SCH (09:15)
[2019-07-20 13:08] VITALS: BP 131/84
[2019-07-20 20:45] VITALS: BP 126/83
[2019-07-21 02:50] VITALS: BP 145/86
[2019-07-21] MEDS: VANCOMYCIN 50 MG/ML ORAL SUSP PO SCH ×4 (03:39→20:03)
[2019-07-21 05:40] LABS: MEAN CORPUSCULAR HEMOGLOBIN 38.4 pg (27.0-34.8); MEAN CORPUSCULAR HGB CONC 32.4 g/dL (32.4-35.8); MEAN CORPUSCULAR VOLUME 118.3 fL (80-100); MEAN PLATELET VOLUME 9.5 fL (7.4-10.4); PLATELET COUNT 98 x10^3/uL (130-400); RED BLOOD COUNT 2.16 x10^6/uL (3.82-5.3); RED CELL DISTRIBUTION WIDTH 19.5 % (9.6-15.2)
[2019-07-21 05:42] LABS: CALCIUM 7.9 mg/dL (8.5-10.1); CHLORIDE 109 mmol/L (98-107)
[2019-07-21 05:48] LABS: ALANINE AMINOTRANSFERASE 24 U/L (12-78); ALBUMIN 2.1 g/dL (3.4-5.0); ALKALINE PHOSPHATASE 110 U/L (45-117); ANION GAP 5 mmol/L (5-15); BILIRUBIN,TOTAL 0.7 mg/dL (0.2-1.0); CREATININE 0.61 mg/dL (0.55-1.02); TOTAL PROTEIN 5.1 g/dL (6.4-8.2)
[2019-07-21 05:57] LABS: MD YES
[2019-07-21 05:59] LABS: BAND#(MANUAL) 0.04 x10^3/uL; BANDS%(MANUAL) 2 % (0-7); EOS#(MANUAL) 0.04 x10^3/uL (0.0-0.4); EOS% (MANUAL) 2 % (1-7); MONOS#(MANUAL) 0.24 x10^3/uL (0.3-2.7); MONOS% (MANUAL) 12 % (2-9)
[2019-07-21 06:00] LABS: ANISOCYTOSIS 1+; LYMPH#(MANUAL) 0.78 x10^3/uL (1-3.4); LYMPHS% (MANUAL) 39 % (22-44); SEGS% (MANUAL) 45 % (42-75)
[2019-07-21 06:01] LABS: <PLATELET ESTIMATE> DECREASED; <PLT MORPHOLOGY> NORMAL PLT MORPH; HYPOCHROMIA 1+; POLYCHROMASIA 1+
[2019-07-21] MEDS: OMEPRAZOLE 20 MG CAPSULE.DR PO SCH ×2 (06:18→15:28)
[2019-07-21] MEDS: MULTIVITAMINS/MINERALS TABLET PO SCH (09:35)
[2019-07-21] MEDS: FOLIC ACID 1 MG TABLET PO SCH (09:35)
[2019-07-21] MEDS: HYDROCORTISONE 25 MG SUPP PR SCH ×2 (09:36→20:03)
[2019-07-21 09:58] VITALS: BP 120/82
[2019-07-21] MEDS ORDERED: ACETAMINOPHEN 325 MG TABLET PO PRN (10:00)
[2019-07-21 15:58] VITALS: BP 117/80
[2019-07-21 18:45] VITALS: BP 128/90
[2019-07-22 01:18] VITALS: BP 122/83
[2019-07-22] MEDS: VANCOMYCIN 50 MG/ML ORAL SUSP PO SCH ×2 (04:08→09:32)
[2019-07-22 05:36] LABS: MEAN CORPUSCULAR HEMOGLOBIN 38.1 pg (27.0-34.8); MEAN CORPUSCULAR HGB CONC 32.4 g/dL (32.4-35.8); MEAN CORPUSCULAR VOLUME 117.7 fL (80-100); PLATELET COUNT 117 x10^3/uL (130-400); RED CELL DISTRIBUTION WIDTH 19.3 % (9.6-15.2)
[2019-07-22 05:57] LABS: MD YES
[2019-07-22 05:58] LABS: BAND#(MANUAL) 0.06 x10^3/uL; BANDS%(MANUAL) 3 % (0-7); BASOS#(MANUAL) 0.02 x10^3/uL (0-0.1); BASOS% (MANUAL) 1 % (0-1); EOS#(MANUAL) 0.06 x10^3/uL (0.0-0.4); EOS% (MANUAL) 3 % (1-7); LYMPH#(MANUAL) 0.71 x10^3/uL (1-3.4); LYMPHS% (MANUAL) 34 % (22-44); MONOS#(MANUAL) 0.21 x10^3/uL (0.3-2.7); MONOS% (MANUAL) 10 % (2-9); SEG#(MANUAL) 1.03 x10^3/uL (1.8-6.8); SEGS% (MANUAL) 49 % (42-75)
[2019-07-22 05:59] LABS: <PLATELET ESTIMATE> DECREASED; <PLT MORPHOLOGY> NORMAL PLT MORPH; ANISOCYTOSIS 2+; HYPOCHROMIA 1+; POLYCHROMASIA 1+
[2019-07-22] MEDS: OMEPRAZOLE 20 MG CAPSULE.DR PO SCH (07:22)
[2019-07-22 08:35] VITALS: BP_SYST 153; BP_SYST 53; BP_DIAS 97
[2019-07-22] MEDS ORDERED: FOLI-17 PO (08:43)
[2019-07-22] MEDS ORDERED: THIA100T67 PO (08:43)
[2019-07-22] MEDS ORDERED: HYDR25SU3 PR (08:43)
[2019-07-22] MEDS ORDERED: VANC1VIA3 PO (08:43)
[2019-07-22] MEDS ORDERED: MULT-484 PO (08:43)
[2019-07-22] MEDS: FOLIC ACID 1 MG TABLET PO SCH (09:32)
[2019-07-22] MEDS: MULTIVITAMINS/MINERALS TABLET PO SCH (09:32)
[2019-07-22] MEDS: HYDROCORTISONE 25 MG SUPP PR SCH (09:32)
[2019-07-23] MEDS ORDERED: SCOPOLAMINE PATCH, 1.5MG PATCH.TD72 TD ONE (17:20)
== END 2019-07-22 13:00 | disposition home or self-care (01) | DRG 433 ==
LOC: ED 21:07 → EDIP 21:25 → 4EST 22:19
PROVIDERS: ADMIT Family Medicine; ATTEND Family Medicine
DX: K70.30 Alcoholic cirrhosis of liver without ascites (principal); G40.509 Epileptic seizures related to external causes, not intractable, without status epilepticus; A04.72 Enterocolitis due to Clostridium difficile, not specified as recurrent; D61.818 Other pancytopenia; D68.9 Coagulation defect, unspecified; D69.3 Immune thrombocytopenic purpura; E87.1 Hypo-osmolality and hyponatremia; F10.239 Alcohol dependence with withdrawal, unspecified; K86.1 Other chronic pancreatitis; D53.9 Nutritional anemia, unspecified; E83.39 Other disorders of phosphorus metabolism; E83.42 Hypomagnesemia; E87.6 Hypokalemia; F41.9 Anxiety disorder, unspecified; I10 Essential (primary) hypertension; K22.70 Barrett's esophagus without dysplasia; K29.80 Duodenitis without bleeding; K44.9 Diaphragmatic hernia without obstruction or gangrene; K64.4 Residual hemorrhoidal skin tags; K64.8 Other hemorrhoids; K70.10 Alcoholic hepatitis without ascites; Z82.0 Family history of epilepsy and other diseases of the nervous system; Z90.49 Acquired absence of other specified parts of digestive tract; Z88.8 Allergy status to other drugs, medicaments and biological substances
CPT/HCPCS: 36415; 99285; J3370; 70450; 70553; 74183; 76700; 80053; 83690; 83735; 84100; 85014; 85018; 85025; 85610; 85730; 87324; 87493; G0378; J3475; J3480; A9575; C9113; J7030; J7040; J7050

== ENCOUNTER 2020-02-18 07:52 | Inpatient (IN) | payer BC, MEDICAID ==
[~2020-02-18] VITALS: Ht 175.3 cm; Wt 79.2 kg
[~2020-02-18 07:52] MED LIST changes: +MULT-484 PO; +VANC1VIA3 PO
--- NOTE | 2020-02-18 08:13 | NUR ---
PT HAS CO PANCREATITIS, ETOH W TREMORS. N/V/D FOR FEW DAYS. PT JUANDICED SKIN AND EYES, ASCITIC ROUND BELLY. 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 LAST DRINK WAS FEW DAYS AGO. PT NOT IN RESP DISTRESS. PT PREFERS NOT TO DISCLOSE INFORMATION ABOUT DRINKING ALCHOLOL IF FAMILY WERE TO INQUIRE.
[2020-02-18] MEDS ORDERED: SODIUM CHLORIDE 0.9% 1,000 ML IV ONE (08:18)
[2020-02-18] MEDS ORDERED: PANTOPRAZOLE 80 MG in SODIUM CHLORIDE 0.9% 50 ML IVPB ONE (08:18)
[2020-02-18] MEDS ORDERED: LORazepam 2 MG/ML, 1ML IVPush PRN ×2 (08:30→16:30)
[2020-02-18] MEDS ORDERED: MORPHINE SULFATE 4 MG/ML, 1ML IVPush ONE (08:30)
[2020-02-18] MEDS ORDERED: SODIUM CHLORIDE FLUSH 10ML SYR IVF ONE (08:30)
[2020-02-18] MEDS ORDERED: LORazepam 2 MG/ML, 1ML ONE (08:34)
[2020-02-18] MEDS ORDERED: MORPHINE SULFATE 4 MG/ML, 1ML ONE (08:42)
--- NOTE | 2020-02-18 08:44 | NUR ---
MEDICATED FOR PAIN AND WDRAWL W ATIVAN.
[2020-02-18 08:58] LABS: MEAN CORPUSCULAR HEMOGLOBIN 40.7 pg (27.0-34.8); MEAN CORPUSCULAR HGB CONC 32.7 g/dL (32.4-35.8); MEAN CORPUSCULAR VOLUME 124.4 fL (80-100); MEAN PLATELET VOLUME 8.7 fL (7.4-10.4); PLATELET COUNT 112 x10^3/uL (130-400); RED BLOOD COUNT 2.12 x10^6/uL (3.82-5.3); RED CELL DISTRIBUTION WIDTH 17.9 % (9.6-15.2)
[2020-02-18 09:10] LABS: INTERNATIONAL NORMALIZED RATIO 1.82 (0.93-1.1); PROTHROMBIN TIME 19.4 Seconds (9.6-11.5)
[2020-02-18 09:11] LABS: ALANINE AMINOTRANSFERASE 64 U/L (12-78); ALBUMIN 1.7 g/dL (3.4-5.0); CALCIUM 7.4 mg/dL (8.5-10.1); CHLORIDE 101 mmol/L (98-107)
[2020-02-18 09:14] LABS: ALKALINE PHOSPHATASE 267 U/L (45-117); CREATININE 0.96 mg/dL (0.55-1.02); TOTAL PROTEIN 5.6 g/dL (6.4-8.2)
[2020-02-18 09:19] LABS: ANION GAP 25 mmol/L (5-15)
[2020-02-18] MEDS ORDERED: MAGNESIUM SULFATE 1 GM, THIAMINE 100 MG, FOLIC ACID 1 MG, MVI ADULT 10 ML in SODIUM CHL... IV ONE (09:22)
[2020-02-18 09:25] LABS: BASOPHILS # (AUTO) 0.03 x10^3/uL (0-0.1); BASOPHILS % (AUTO) 0 % (0-1); EOSINOPHILS % (AUTO) 0 % (1-7); LYMPHOCYTES # (AUTO) 0.52 x10^3/uL (1-3.4); LYMPHOCYTES % (AUTO) 6 % (22-44); MD MORPH REVIEW ONLY; MONOCYTES # (AUTO) 0.44 x10^3/uL (0.2-0.8); MONOCYTES % (AUTO) 5 % (2-9); NEUTROPHILS # (AUTO) 7.17 x10^3/uL (1.8-6.8); NEUTROPHILS % (AUTO) 88 % (42-75)
[2020-02-18 09:29] LABS: <PLATELET ESTIMATE> DECREASED; <PLT MORPHOLOGY> NORMAL PLT MORPH; ANISOCYTOSIS 1+
[2020-02-18 09:30] LABS: POLYCHROMASIA 1+
--- NOTE | 2020-02-18 09:35 | NUR ---
[facility] AT BEDSIDE.
[2020-02-18] MEDS ORDERED: MAGNESIUM SULFATE PMX 2GM/50ML 50 ML ONE (09:38)
[2020-02-18] MEDS: PANTOPRAZOLE 80 MG in SODIUM CHLORIDE 0.9% 100 ML IV SCH ×2 (09:44→19:44)
--- NOTE | 2020-02-18 09:45 | NUR ---
US AT BEDSIDE.
[2020-02-18 09:54] LABS: ACETONE, SERUM Negative (Negative)
[2020-02-18] MEDS ORDERED: MAGNESIUM SULFATE PMX 2GM/50ML 50 ML IV ONE (10:00)
[2020-02-18] MEDS ORDERED: OCTREOTIDE 100MCG/ML, 1ML (0.1MG/ML) IV ONE (10:00)
--- NOTE | 2020-02-18 10:00 | NUR ---
DISCUSSED W PHARMACY. OK TO Y SITE MAG GTT AND BANNANA BAG AT LOWER RATE.
--- NOTE | 2020-02-18 10:25 | NUR ---
REPORT TO TIAGO
--- NOTE | 2020-02-18 10:28 | NUR ---
LAB AT BEDSIDE.
[2020-02-18] MEDS ORDERED: FOLIC ACID 5 MG/ML IM ONE (10:30)
[2020-02-18] MEDS ORDERED: ONDANSETRON ODT 4 MG PO PRN (10:30)
[2020-02-18] MEDS ORDERED: ONDANSETRON 2MG/ML, 2ML IVPush PRN ×3 (10:30→16:30)
[2020-02-18] MEDS ORDERED: LORazepam 2 MG/ML, 1ML IV PRN (10:30)
--- NOTE | 2020-02-18 10:45 | NUR ---
PT IN CT. RTG
[2020-02-18] MEDS ORDERED: OMNIPAQUE 350 MG/ML, 100ML BOTTLE ONE (10:53)
[2020-02-18] MEDS: OCTREOTIDE 500 MCG in SODIUM CHLORIDE 0.9% 99 ML IV PRN ×2 (11:59→19:44)
[2020-02-18 12:18] VITALS: BP 126/91
[2020-02-18 12:19] LABS: ANION GAP 21 mmol/L (5-15); CALCIUM 7.2 mg/dL (8.5-10.1); CHLORIDE 104 mmol/L (98-107); CREATININE 0.78 mg/dL (0.55-1.02)
[2020-02-18] MEDS: LORazepam 2 MG/ML, 1ML IV PRN (13:02)
[2020-02-18] MEDS: SODIUM CHLORIDE 0.9% 1,000 ML IV SCH ×2 (13:24→23:08)
[2020-02-18] MEDS ORDERED: CHLORHEXIDINE 15 ML UDC MM ONE (14:00)
[2020-02-18] MEDS ORDERED: PROPOFOL 10 MG/ML, 20ML ONE (15:43)
[2020-02-18] MEDS ORDERED: SUCCINYLCHOLINE 20 MG/ML, 10ML ONE (15:43)
[2020-02-18] MEDS ORDERED: CEFAZOLIN 1,000 MG ONE (15:43)
[2020-02-18] MEDS ORDERED: PHENYLEPHRINE 10 MG/ML ONE (15:43)
[2020-02-18] MEDS ORDERED: HYDROmorphone 1 MG/ML, 1ML INJ IVPush PRN (16:30)
[2020-02-18] MEDS ORDERED: PROMETHAZINE 25 MG/ML, 1ML IVPush PRN (16:30)
[2020-02-18] MEDS ORDERED: FENTANYL PF 100 MCG/2ML IV PRN (16:30)
[2020-02-18 17:11] VITALS: BP 97/67
[2020-02-18] MEDS: CEFTRIAXONE PMX 1GM/50ML 50 ML IV SCH (18:13)
[2020-02-18 18:58] VITALS: BP 92/67
[2020-02-18] MEDS: morphine SULFATE 10 MG/ML, 1ML IVPush PRN (20:34)
[2020-02-18 23:08] VITALS: BP 99/67
[2020-02-19] VITALS (12 sets, daily range): BP systolic 82–101; BP diastolic 50–72
[2020-02-19] MEDS: LORazepam 2 MG/ML, 1ML IV PRN ×5 (02:07→23:58)
[2020-02-19] MEDS: OCTREOTIDE 500 MCG in SODIUM CHLORIDE 0.9% 99 ML IV PRN ×2 (05:59→16:36)
[2020-02-19] MEDS: PANTOPRAZOLE 80 MG in SODIUM CHLORIDE 0.9% 100 ML IV SCH ×2 (06:00→16:36)
[2020-02-19 07:52] LABS: ALANINE AMINOTRANSFERASE 67 U/L (12-78); ALBUMIN 1.5 g/dL (3.4-5.0); ANION GAP 10 mmol/L (5-15); CALCIUM 6.7 mg/dL (8.5-10.1); CHLORIDE 110 mmol/L (98-107); CREATININE 0.76 mg/dL (0.55-1.02)
[2020-02-19 07:54] LABS: ALKALINE PHOSPHATASE 218 U/L (45-117); BILIRUBIN,TOTAL 13.3 mg/dL (0.2-1.0)
[2020-02-19 08:17] LABS: BASOPHILS # (AUTO) 0.03 x10^3/uL (0-0.1); BASOPHILS % (AUTO) 1 % (0-1); EOSINOPHILS # (AUTO) 0.01 x10^3/uL (0-0.4); EOSINOPHILS % (AUTO) 0 % (1-7); LYMPHOCYTES # (AUTO) 0.73 x10^3/uL (1-3.4); LYMPHOCYTES % (AUTO) 17 % (22-44); MD SCAN; MEAN CORPUSCULAR HEMOGLOBIN 41.4 pg (27.0-34.8); MEAN CORPUSCULAR HGB CONC 32.8 g/dL (32.4-35.8); MEAN PLATELET VOLUME 9.2 fL (7.4-10.4); MONOCYTES # (AUTO) 0.25 x10^3/uL (0.2-0.8); MONOCYTES % (AUTO) 6 % (2-9); NEUTROPHILS # (AUTO) 3.31 x10^3/uL (1.8-6.8); NEUTROPHILS % (AUTO) 77 % (42-75); PLATELET COUNT 57 x10^3/uL (130-400); RED BLOOD COUNT 1.79 x10^6/uL (3.82-5.3); RED CELL DISTRIBUTION WIDTH 17.6 % (9.6-15.2)
[2020-02-19] MEDS ORDERED: THIAMINE 100 MG in DEXTROSE 5% 50 ML IVPB SCH (09:00)
[2020-02-19] MEDS: RIFAXIMIN 200 MG TABLET PO SCH ×3 (09:59→22:47)
[2020-02-19] MEDS: POTASSIUM CHLORIDE 20 MEQ, MAGNESIUM SULFATE 1 GM, FOLIC ACID 1 MG, THIAMINE 200 MG, MV... IV SCH (09:59)
[2020-02-19] MEDS: SODIUM CHLORIDE 0.9% 1,000 ML IV SCH (10:06)
[2020-02-19] MEDS ORDERED: CALCIUM CARBONATE 500 MG TAB.CHEW PO PRN (11:00)
[2020-02-19 16:25] LABS: CLOSTRIDIUM DIFFICILE ANTIGEN POSITIVE; CLOSTRIDIUM DIFFICILE TOXIN POSITIVE (Negative)
[2020-02-19] MEDS: VANCOMYCIN 50 MG/ML ORAL SUSP PO SCH (22:47)
[2020-02-19] MEDS: CEFTRIAXONE PMX 1GM/50ML 50 ML IV SCH (22:47)
[2020-02-20] VITALS (8 sets, daily range): BP systolic 94–111; BP diastolic 63–80
[2020-02-20] MEDS: PANTOPRAZOLE 80 MG in SODIUM CHLORIDE 0.9% 100 ML IV SCH ×2 (02:04→14:20)
[2020-02-20] MEDS: OCTREOTIDE 500 MCG in SODIUM CHLORIDE 0.9% 99 ML IV PRN ×2 (02:05→14:21)
[2020-02-20] MEDS: LORazepam 2 MG/ML, 1ML IV PRN ×3 (03:32→19:18)
[2020-02-20] MEDS: SODIUM CHLORIDE 0.9% 1,000 ML IV SCH (04:02)
[2020-02-20 05:01] LABS: INTERNATIONAL NORMALIZED RATIO 2.24 (0.93-1.1); PROTHROMBIN TIME 23.9 Seconds (9.6-11.5)
[2020-02-20 05:09] LABS: ALBUMIN 1.3 g/dL (3.4-5.0); CALCIUM 6.5 mg/dL (8.5-10.1); CHLORIDE 110 mmol/L (98-107)
[2020-02-20 05:15] LABS: ALANINE AMINOTRANSFERASE 58 U/L (12-78); ALKALINE PHOSPHATASE 180 U/L (45-117); ANION GAP 9 mmol/L (5-15); CREATININE 0.67 mg/dL (0.55-1.02); TOTAL PROTEIN 4.5 g/dL (6.4-8.2)
[2020-02-20 06:06] LABS: MEAN CORPUSCULAR HEMOGLOBIN 39.1 pg (27.0-34.8); RED BLOOD COUNT 2.18 x10^6/uL (3.82-5.3)
[2020-02-20 06:07] LABS: MEAN PLATELET VOLUME 9.6 fL (7.4-10.4); PLATELET COUNT 56 x10^3/uL (130-400)
[2020-02-20 06:11] LABS: MD YES
[2020-02-20 06:17] LABS: BAND#(MANUAL) 0.03 x10^3/uL; BANDS%(MANUAL) 1 % (0-7); LYMPH#(MANUAL) 0.31 x10^3/uL (1-3.4); LYMPHS% (MANUAL) 9 % (22-44); MONOS#(MANUAL) 0.03 x10^3/uL (0.3-2.7); MONOS% (MANUAL) 1 % (2-9); NRBC % (MANUAL) 1 % (0-1); SEG#(MANUAL) 3.03 x10^3/uL (1.8-6.8); SEGS% (MANUAL) 89 % (42-75)
[2020-02-20 06:18] LABS: ANISOCYTOSIS 1+
[2020-02-20 06:19] LABS: <PLATELET ESTIMATE> DECREASED; <PLT MORPHOLOGY> NORMAL PLT MORPH
[2020-02-20 06:46] LABS: HCG UR SG 1.038 (1.003-1.030)
[2020-02-20 06:47] LABS: MICROSCOPIC INDICATED
[2020-02-20] MEDS: RIFAXIMIN 200 MG TABLET PO SCH ×3 (07:46→22:21)
[2020-02-20] MEDS: POTASSIUM CHLORIDE 20 MEQ, MAGNESIUM SULFATE 1 GM, FOLIC ACID 1 MG, THIAMINE 200 MG, MV... IV SCH (10:00)
[2020-02-20] MEDS: PHYTONADIONE 10 MG/ML, 1ML SQ SCH (10:00)
[2020-02-20] MEDS: VANCOMYCIN 50 MG/ML ORAL SUSP PO SCH ×2 (10:00→22:21)
[2020-02-20] MEDS: LACTULOSE 20 GM/30 ML UDC PO PRN (22:21)
[2020-02-20] MEDS: CEFTRIAXONE PMX 1GM/50ML 50 ML IV SCH (22:21)
[2020-02-21] MEDS: SODIUM CHLORIDE 0.9% 1,000 ML IV SCH (00:04)
[2020-02-21] MEDS: PANTOPRAZOLE 80 MG in SODIUM CHLORIDE 0.9% 100 ML IV SCH ×2 (00:04→11:45)
[2020-02-21] MEDS: OCTREOTIDE 500 MCG in SODIUM CHLORIDE 0.9% 99 ML IV PRN (00:04)
[2020-02-21 01:44] VITALS: BP 95/69
[2020-02-21 05:53] LABS: ANION GAP 5 mmol/L (5-15); CALCIUM 6.8 mg/dL (8.5-10.1); CHLORIDE 115 mmol/L (98-107); CREATININE 0.64 mg/dL (0.55-1.02)
[2020-02-21 05:55] VITALS: BP 101/70
[2020-02-21 05:58] LABS: MEAN CORPUSCULAR HGB CONC 34.3 g/dL (32.4-35.8); MEAN CORPUSCULAR VOLUME 116.4 fL (80-100); MEAN PLATELET VOLUME 9.8 fL (7.4-10.4); PLATELET COUNT 51 x10^3/uL (130-400); RED BLOOD COUNT 2.49 x10^6/uL (3.82-5.3); RED CELL DISTRIBUTION WIDTH 25.2 % (9.6-15.2)
[2020-02-21 06:21] LABS: MD YES
[2020-02-21 06:25] LABS: BAND#(MANUAL) 0.13 x10^3/uL; BANDS%(MANUAL) 4 % (0-7); LYMPH#(MANUAL) 0.26 x10^3/uL (1-3.4); LYMPHS% (MANUAL) 8 % (22-44); MONOS#(MANUAL) 0.19 x10^3/uL (0.3-2.7); MONOS% (MANUAL) 6 % (2-9); NRBC % (MANUAL) 1 % (0-1); SEG#(MANUAL) 2.62 x10^3/uL (1.8-6.8); SEGS% (MANUAL) 82 % (42-75)
[2020-02-21 06:26] LABS: ANISOCYTOSIS 1+
[2020-02-21 06:27] LABS: <PLATELET ESTIMATE> DECREASED; <PLT MORPHOLOGY> NORMAL PLT MORPH
[2020-02-21] MEDS: LORazepam 2 MG/ML, 1ML IV PRN (06:29)
[2020-02-21 08:00] VITALS: BP 109/70
[2020-02-21] MEDS: RIFAXIMIN 200 MG TABLET PO SCH ×3 (08:35→21:19)
[2020-02-21] MEDS: VANCOMYCIN 50 MG/ML ORAL SUSP PO SCH ×4 (08:36→21:19)
[2020-02-21] MEDS: POTASSIUM CHLORIDE 20 MEQ, MAGNESIUM SULFATE 1 GM, FOLIC ACID 1 MG, THIAMINE 200 MG, MV... IV SCH (08:36)
[2020-02-21] MEDS: PHYTONADIONE 10 MG/ML, 1ML SQ SCH (08:36)
[2020-02-21 10:31] LABS: ALBUMIN 1.4 g/dL (3.4-5.0)
[2020-02-21 10:33] LABS: BILIRUBIN,INDIRECT 2.3 mg/dL (0.0-2.0)
[2020-02-21 10:38] LABS: BILIRUBIN, DIRECT 13.6 mg/dL (0.1-0.2); BILIRUBIN,TOTAL 15.9 mg/dL (0.2-1.0)
[2020-02-21] MEDS: D5%-0.45NACL+KCL 20MEQ 1,000 ML IV SCH (11:46)
[2020-02-21 12:10] VITALS: BP 116/73
[2020-02-21 15:05] VITALS: BP 110/79
[2020-02-21] MEDS: LACTULOSE 20 GM/30 ML UDC PO PRN (15:09)
[2020-02-21 19:08] VITALS: BP 105/68
[2020-02-21] MEDS: CEFTRIAXONE PMX 1GM/50ML 50 ML IV SCH (23:56)
[2020-02-22] VITALS (7 sets, daily range): BP systolic 95–111; BP diastolic 69–97
[2020-02-22] MEDS: D5%-0.45NACL+KCL 20MEQ 1,000 ML IV SCH ×2 (03:17→11:56)
[2020-02-22 06:04] LABS: INTERNATIONAL NORMALIZED RATIO 1.62 (0.93-1.1); PROTHROMBIN TIME 17.3 Seconds (9.6-11.5)
[2020-02-22] MEDS: VANCOMYCIN 50 MG/ML ORAL SUSP PO SCH ×4 (06:11→21:37)
[2020-02-22] MEDS: OMEPRAZOLE 20 MG CAPSULE.DR PO SCH (06:11)
[2020-02-22 06:29] LABS: ALBUMIN 1.4 g/dL (3.4-5.0); ANION GAP 8 mmol/L (5-15); CALCIUM 6.5 mg/dL (8.5-10.1); CHLORIDE 115 mmol/L (98-107)
[2020-02-22 06:32] LABS: ALANINE AMINOTRANSFERASE 58 U/L (12-78); ALKALINE PHOSPHATASE 220 U/L (45-117); CREATININE 0.69 mg/dL (0.55-1.02); TOTAL PROTEIN 4.7 g/dL (6.4-8.2)
[2020-02-22 06:35] LABS: BILIRUBIN,TOTAL 15.5 mg/dL (0.2-1.0)
[2020-02-22 06:48] LABS: MEAN CORPUSCULAR HEMOGLOBIN 39.8 pg (27.0-34.8); MEAN CORPUSCULAR VOLUME 117.1 fL (80-100); MEAN PLATELET VOLUME 9.6 fL (7.4-10.4); PLATELET COUNT 76 x10^3/uL (130-400); RED BLOOD COUNT 2.42 x10^6/uL (3.82-5.3); RED CELL DISTRIBUTION WIDTH 25.2 % (9.6-15.2)
[2020-02-22 07:29] LABS: BASOPHILS % (AUTO) 0 % (0-1); EOSINOPHILS # (AUTO) 0.08 x10^3/uL (0-0.4); EOSINOPHILS % (AUTO) 2 % (1-7); LYMPHOCYTES # (AUTO) 0.68 x10^3/uL (1-3.4); LYMPHOCYTES % (AUTO) 17 % (22-44); MD SCAN; MONOCYTES # (AUTO) 0.38 x10^3/uL (0.2-0.8); MONOCYTES % (AUTO) 10 % (2-9); NEUTROPHILS # (AUTO) 2.92 x10^3/uL (1.8-6.8); NEUTROPHILS % (AUTO) 72 % (42-75)
[2020-02-22] MEDS: RIFAXIMIN 200 MG TABLET PO SCH ×3 (08:37→21:37)
[2020-02-22] MEDS: PHYTONADIONE 10 MG/ML, 1ML SQ SCH (08:37)
[2020-02-22] MEDS: POTASSIUM CHLORIDE 20 MEQ, MAGNESIUM SULFATE 1 GM, FOLIC ACID 1 MG, THIAMINE 200 MG, MV... IV SCH (16:06)
[2020-02-22] MEDS: LACTULOSE 20 GM/30 ML UDC PO PRN (17:14)
[2020-02-22] MEDS: LORazepam 2 MG/ML, 1ML IV PRN (21:51)
[2020-02-22] MEDS: CEFTRIAXONE PMX 1GM/50ML 50 ML IV SCH (22:36)
[2020-02-23] VITALS (7 sets, daily range): BP systolic 103–124; BP diastolic 72–86
[2020-02-23] MEDS: D5%-0.45NACL+KCL 20MEQ 1,000 ML IV SCH ×3 (00:18→20:59)
[2020-02-23] MEDS: VANCOMYCIN 50 MG/ML ORAL SUSP PO SCH ×4 (06:12→22:16)
[2020-02-23] MEDS: OMEPRAZOLE 20 MG CAPSULE.DR PO SCH (06:12)
[2020-02-23] MEDS: PHYTONADIONE 10 MG/ML, 1ML SQ SCH (10:14)
[2020-02-23] MEDS: RIFAXIMIN 200 MG TABLET PO SCH ×3 (10:14→22:16)
[2020-02-23] MEDS: LORazepam 2 MG/ML, 1ML IV PRN (11:08)
[2020-02-23] MEDS: POTASSIUM CHLORIDE 20 MEQ, MAGNESIUM SULFATE 1 GM, FOLIC ACID 1 MG, THIAMINE 200 MG, MV... IV SCH (14:50)
[2020-02-23] MEDS: CEFTRIAXONE PMX 1GM/50ML 50 ML IV SCH (22:16)
[2020-02-24] VITALS (7 sets, daily range): BP systolic 106–122; BP diastolic 74–87
[2020-02-24] MEDS: LORazepam 2 MG/ML, 1ML IV PRN (03:11)
[2020-02-24] MEDS: VANCOMYCIN 50 MG/ML ORAL SUSP PO SCH ×4 (06:25→21:08)
[2020-02-24] MEDS: OMEPRAZOLE 20 MG CAPSULE.DR PO SCH (06:25)
[2020-02-24] MEDS: D5%-0.45NACL+KCL 20MEQ 1,000 ML IV SCH (08:32)
[2020-02-24] MEDS: RIFAXIMIN 200 MG TABLET PO SCH ×3 (08:32→21:09)
[2020-02-24 14:12] LABS: MEAN CORPUSCULAR HEMOGLOBIN 38.7 pg (27.0-34.8); MEAN CORPUSCULAR HGB CONC 32.8 g/dL (32.4-35.8); MEAN CORPUSCULAR VOLUME 118.2 fL (80-100); MEAN PLATELET VOLUME 9.4 fL (7.4-10.4); PLATELET COUNT 75 x10^3/uL (130-400); RED BLOOD COUNT 2.77 x10^6/uL (3.82-5.3); RED CELL DISTRIBUTION WIDTH 23.9 % (9.6-15.2)
[2020-02-24 14:24] LABS: CHLORIDE 110 mmol/L (98-107)
[2020-02-24 14:31] LABS: ALANINE AMINOTRANSFERASE 53 U/L (12-78); ALBUMIN 1.3 g/dL (3.4-5.0); ALKALINE PHOSPHATASE 256 U/L (45-117); ANION GAP 5 mmol/L (5-15); CALCIUM 6.7 mg/dL (8.5-10.1)
[2020-02-24 14:36] LABS: MD YES
[2020-02-24 14:38] LABS: BAND#(MANUAL) 1.08 x10^3/uL; BANDS%(MANUAL) 11 % (0-7); EOS% (MANUAL) 2 % (1-7); LYMPH#(MANUAL) 0.98 x10^3/uL (1-3.4); LYMPHS% (MANUAL) 10 % (22-44); METAMYELOCYTES% (MANUAL) 1 % (0-1); MONOS#(MANUAL) 1.67 x10^3/uL (0.3-2.7); MONOS% (MANUAL) 17 % (2-9); SEG#(MANUAL) 5.78 x10^3/uL (1.8-6.8); SEGS% (MANUAL) 59 % (42-75); TOTAL PROTEIN 4.8 g/dL (6.4-8.2)
[2020-02-24 14:39] LABS: <PLATELET ESTIMATE> DECREASED; ANISOCYTOSIS 2+; BILIRUBIN,TOTAL 20.1 mg/dL (0.2-1.0); POLYCHROMASIA 1+; TOXIC GRAN 1+
[2020-02-24 14:40] LABS: LARGE PLATELETS 1+
[2020-02-24 14:49] LABS: INTERNATIONAL NORMALIZED RATIO 1.45 (0.93-1.1); PROTHROMBIN TIME 15.4 Seconds (9.6-11.5)
[2020-02-24] MEDS: PIPERACILLIN/TAZO/PMX 3.375GM 50 ML IV SCH ×2 (15:46→21:09)
[2020-02-25 01:49] VITALS: BP 106/69
[2020-02-25] MEDS: PIPERACILLIN/TAZO/PMX 3.375GM 50 ML IV SCH ×4 (03:22→22:47)
[2020-02-25] MEDS: VANCOMYCIN 50 MG/ML ORAL SUSP PO SCH ×4 (06:15→21:10)
[2020-02-25] MEDS: OMEPRAZOLE 20 MG CAPSULE.DR PO SCH (06:15)
[2020-02-25 07:54] VITALS: BP 101/70
[2020-02-25 08:56] LABS: MEAN CORPUSCULAR HEMOGLOBIN 39.6 pg (27.0-34.8); MEAN CORPUSCULAR HGB CONC 33.7 g/dL (32.4-35.8); MEAN CORPUSCULAR VOLUME 117.3 fL (80-100); PLATELET COUNT 76 x10^3/uL (130-400); RED BLOOD COUNT 2.64 x10^6/uL (3.82-5.3); RED CELL DISTRIBUTION WIDTH 23.8 % (9.6-15.2)
[2020-02-25 09:00] LABS: ALANINE AMINOTRANSFERASE 44 U/L (12-78); ALBUMIN 1.2 g/dL (3.4-5.0); ANION GAP 8 mmol/L (5-15); CALCIUM 6.7 mg/dL (8.5-10.1); CHLORIDE 108 mmol/L (98-107)
[2020-02-25 09:02] LABS: ALKALINE PHOSPHATASE 227 U/L (45-117); CREATININE 0.89 mg/dL (0.55-1.02)
[2020-02-25 09:07] LABS: BILIRUBIN,TOTAL 19.4 mg/dL (0.2-1.0)
[2020-02-25 09:08] LABS: TOTAL PROTEIN 4.6 g/dL (6.4-8.2)
[2020-02-25 09:28] LABS: MD YES
[2020-02-25 09:30] LABS: BAND#(MANUAL) 1.13 x10^3/uL; BANDS%(MANUAL) 12 % (0-7); BASOS#(MANUAL) 0.09 x10^3/uL (0-0.1); BASOS% (MANUAL) 1 % (0-1); EOS#(MANUAL) 0.09 x10^3/uL (0.0-0.4); EOS% (MANUAL) 1 % (1-7); LYMPH#(MANUAL) 0.66 x10^3/uL (1-3.4); LYMPHS% (MANUAL) 7 % (22-44); MONOS#(MANUAL) 0.85 x10^3/uL (0.3-2.7); MONOS% (MANUAL) 9 % (2-9); SEG#(MANUAL) 6.58 x10^3/uL (1.8-6.8); SEGS% (MANUAL) 70 % (42-75)
[2020-02-25 09:31] LABS: ANISOCYTOSIS 2+
[2020-02-25 09:32] LABS: <PLATELET ESTIMATE> DECREASED; <PLT MORPHOLOGY> NORMAL PLT MORPH
[2020-02-25] MEDS: RIFAXIMIN 200 MG TABLET PO SCH ×3 (10:22→21:10)
[2020-02-25] MEDS ORDERED: LIDOCAINE 1%, 10ML ONE (10:23)
[2020-02-25 12:17] VITALS: BP 98/69
[2020-02-25 19:49] VITALS: BP 100/65
[2020-02-26 01:28] VITALS: BP 92/57
[2020-02-26] MEDS: PIPERACILLIN/TAZO/PMX 3.375GM 50 ML IV SCH ×4 (05:05→22:30)
[2020-02-26] MEDS: OMEPRAZOLE 20 MG CAPSULE.DR PO SCH (06:04)
[2020-02-26] MEDS: VANCOMYCIN 50 MG/ML ORAL SUSP PO SCH ×4 (06:04→20:19)
[2020-02-26 07:07] VITALS: BP 97/66
[2020-02-26 07:53] LABS: MEAN CORPUSCULAR HEMOGLOBIN 39.1 pg (27.0-34.8); MEAN CORPUSCULAR HGB CONC 33.8 g/dL (32.4-35.8); MEAN CORPUSCULAR VOLUME 115.5 fL (80-100); MEAN PLATELET VOLUME 9.3 fL (7.4-10.4); PLATELET COUNT 75 x10^3/uL (130-400); RED BLOOD COUNT 2.65 x10^6/uL (3.82-5.3); RED CELL DISTRIBUTION WIDTH 22.7 % (9.6-15.2)
[2020-02-26 08:11] LABS: MD YES
[2020-02-26 08:17] LABS: ANISOCYTOSIS 2+; BAND#(MANUAL) 1.81 x10^3/uL; BANDS%(MANUAL) 14 % (0-7); EOS#(MANUAL) 0.26 x10^3/uL (0.0-0.4); EOS% (MANUAL) 2 % (1-7); LYMPHS% (MANUAL) 7 % (22-44); METAMYELOCYTES# (MANUAL) 0.13 x10^3/uL (0-0); METAMYELOCYTES% (MANUAL) 1 % (0-1); MONOS#(MANUAL) 1.16 x10^3/uL (0.3-2.7); MONOS% (MANUAL) 9 % (2-9); MYELOCYTES# (MANUAL) 0.13 x10^3/uL (0-0); MYELOCYTES% (MANUAL) 1 % (0-0); SEG#(MANUAL) 8.51 x10^3/uL (1.8-6.8); SEGS% (MANUAL) 66 % (42-75)
[2020-02-26 08:18] LABS: <PLATELET ESTIMATE> DECREASED; <PLT MORPHOLOGY> NORMAL PLT MORPH
[2020-02-26] MEDS: RIFAXIMIN 200 MG TABLET PO SCH (08:34)
[2020-02-26 12:36] VITALS: BP 95/64
[2020-02-26 20:12] VITALS: BP 95/64
[2020-02-27 02:46] VITALS: BP 97/63
[2020-02-27] MEDS: PIPERACILLIN/TAZO/PMX 3.375GM 50 ML IV SCH ×4 (04:20→22:10)
[2020-02-27] MEDS: OMEPRAZOLE 20 MG CAPSULE.DR PO SCH (05:51)
[2020-02-27] MEDS: VANCOMYCIN 50 MG/ML ORAL SUSP PO SCH ×4 (05:52→20:06)
[2020-02-27 07:14] VITALS: BP 93/56
[2020-02-27 07:44] LABS: MEAN CORPUSCULAR HGB CONC 33.1 g/dL (32.4-35.8); MEAN PLATELET VOLUME 9.1 fL (7.4-10.4); PLATELET COUNT 78 x10^3/uL (130-400); RED BLOOD COUNT 2.52 x10^6/uL (3.82-5.3); RED CELL DISTRIBUTION WIDTH 22.3 % (9.6-15.2)
[2020-02-27 07:52] LABS: ALANINE AMINOTRANSFERASE 32 U/L (12-78); ALBUMIN 0.9 g/dL (3.4-5.0); ANION GAP 8 mmol/L (5-15); CALCIUM 6.7 mg/dL (8.5-10.1); CHLORIDE 104 mmol/L (98-107); CREATININE 0.97 mg/dL (0.55-1.02)
[2020-02-27 07:54] LABS: ALKALINE PHOSPHATASE 190 U/L (45-117); TOTAL PROTEIN 4.5 g/dL (6.4-8.2)
[2020-02-27 08:04] LABS: BILIRUBIN,TOTAL 16.6 mg/dL (0.2-1.0)
[2020-02-27 08:14] LABS: MD YES
[2020-02-27 08:15] LABS: BAND#(MANUAL) 2.62 x10^3/uL; BANDS%(MANUAL) 22 % (0-7); BASOS#(MANUAL) 0.12 x10^3/uL (0-0.1); BASOS% (MANUAL) 1 % (0-1); EOS#(MANUAL) 0.12 x10^3/uL (0.0-0.4); EOS% (MANUAL) 1 % (1-7); LYMPH#(MANUAL) 0.83 x10^3/uL (1-3.4); LYMPHS% (MANUAL) 7 % (22-44); MONOS#(MANUAL) 0.83 x10^3/uL (0.3-2.7); MONOS% (MANUAL) 7 % (2-9); MYELOCYTES# (MANUAL) 0.24 x10^3/uL (0-0); MYELOCYTES% (MANUAL) 2 % (0-0); SEG#(MANUAL) 7.14 x10^3/uL (1.8-6.8); SEGS% (MANUAL) 60 % (42-75)
[2020-02-27 08:16] LABS: <PLATELET ESTIMATE> DECREASED; <PLT MORPHOLOGY> NORMAL PLT MORPH; ANISOCYTOSIS 2+; TOXIC GRAN 1+
[2020-02-27 13:22] VITALS: BP 106/69
[2020-02-27] MEDS ORDERED: POTASSIUM CHLORIDE 20 MEQ TAB.ER.PRT PO ONE (13:30)
[2020-02-27 19:11] VITALS: BP 97/66
[2020-02-28 00:20] VITALS: BP 104/69
[2020-02-28] MEDS: PIPERACILLIN/TAZO/PMX 3.375GM 50 ML IV SCH (04:19)
[2020-02-28] MEDS: morphine SULFATE 10 MG/ML, 1ML IVPush PRN ×4 (04:24→21:13)
[2020-02-28 05:17] LABS: ANION GAP 10 mmol/L (5-15); CALCIUM 6.8 mg/dL (8.5-10.1); CHLORIDE 104 mmol/L (98-107); CREATININE 0.96 mg/dL (0.55-1.02)
[2020-02-28 05:20] LABS: MEAN CORPUSCULAR HEMOGLOBIN 38.5 pg (27.0-34.8); MEAN CORPUSCULAR VOLUME 113.2 fL (80-100); MEAN PLATELET VOLUME 9.4 fL (7.4-10.4); PLATELET COUNT 71 x10^3/uL (130-400); RED BLOOD COUNT 2.48 x10^6/uL (3.82-5.3); RED CELL DISTRIBUTION WIDTH 21.9 % (9.6-15.2)
[2020-02-28 05:48] LABS: MD YES
[2020-02-28 05:50] LABS: BAND#(MANUAL) 0.36 x10^3/uL; BANDS%(MANUAL) 3 % (0-7); EOS#(MANUAL) 0.12 x10^3/uL (0.0-0.4); EOS% (MANUAL) 1 % (1-7); LYMPH#(MANUAL) 1.21 x10^3/uL (1-3.4); LYMPHS% (MANUAL) 10 % (22-44); METAMYELOCYTES# (MANUAL) 0.24 x10^3/uL (0-0); METAMYELOCYTES% (MANUAL) 2 % (0-1); MONOS#(MANUAL) 1.21 x10^3/uL (0.3-2.7); MONOS% (MANUAL) 10 % (2-9); SEG#(MANUAL) 8.95 x10^3/uL (1.8-6.8); SEGS% (MANUAL) 74 % (42-75)
[2020-02-28 05:51] LABS: <PLATELET ESTIMATE> DECREASED; <PLT MORPHOLOGY> NORMAL PLT MORPH; ANISOCYTOSIS 2+; TOXIC GRAN 1+
[2020-02-28] MEDS: VANCOMYCIN 50 MG/ML ORAL SUSP PO SCH ×4 (06:12→21:12)
[2020-02-28] MEDS: OMEPRAZOLE 20 MG CAPSULE.DR PO SCH (06:12)
[2020-02-28 06:43] VITALS: BP 93/68
[2020-02-28] MEDS ORDERED: POTASSIUM CHLORIDE 20 MEQ TAB.ER.PRT PO ONE (07:30)
[2020-02-28] MEDS: CEFTRIAXONE PMX 2GM/50ML 50 ML IV SCH (08:24)
[2020-02-28 12:36] VITALS: BP 107/73
[2020-02-28 20:21] VITALS: BP 113/84
[2020-02-29 01:16] VITALS: BP 107/75
[2020-02-29 04:49] LABS: INTERNATIONAL NORMALIZED RATIO 1.33 (0.93-1.1); PROTHROMBIN TIME 14.1 Seconds (9.6-11.5)
[2020-02-29 04:50] LABS: MEAN CORPUSCULAR HEMOGLOBIN 38.3 pg (27.0-34.8); MEAN CORPUSCULAR HGB CONC 33.6 g/dL (32.4-35.8); MEAN PLATELET VOLUME 9.1 fL (7.4-10.4); PLATELET COUNT 80 x10^3/uL (130-400); RED BLOOD COUNT 2.67 x10^6/uL (3.82-5.3)
[2020-02-29 04:55] LABS: CHLORIDE 103 mmol/L (98-107); RED CELL DISTRIBUTION WIDTH 21.5 % (9.6-15.2)
[2020-02-29 05:03] LABS: ALANINE AMINOTRANSFERASE 34 U/L (12-78); ALKALINE PHOSPHATASE 202 U/L (45-117); ANION GAP 8 mmol/L (5-15); CREATININE 0.85 mg/dL (0.55-1.02); TOTAL PROTEIN 4.8 g/dL (6.4-8.2)
[2020-02-29 05:17] LABS: BILIRUBIN,TOTAL 16.3 mg/dL (0.2-1.0)
[2020-02-29 05:42] LABS: MD YES
[2020-02-29 05:44] LABS: BAND#(MANUAL) 0.97 x10^3/uL; BANDS%(MANUAL) 6 % (0-7); EOS#(MANUAL) 0.32 x10^3/uL (0.0-0.4); EOS% (MANUAL) 2 % (1-7); LYMPH#(MANUAL) 0.64 x10^3/uL (1-3.4); LYMPHS% (MANUAL) 4 % (22-44); METAMYELOCYTES# (MANUAL) 0.64 x10^3/uL (0-0); METAMYELOCYTES% (MANUAL) 4 % (0-1); MONOS#(MANUAL) 1.13 x10^3/uL (0.3-2.7); MONOS% (MANUAL) 7 % (2-9); SEGS% (MANUAL) 77 % (42-75)
[2020-02-29 05:45] LABS: <PLATELET ESTIMATE> DECREASED; <PLT MORPHOLOGY> NORMAL PLT MORPH; ANISOCYTOSIS 2+; TOXIC GRAN 1+
[2020-02-29 05:46] LABS: POLYCHROMASIA 1+
[2020-02-29] MEDS: OMEPRAZOLE 20 MG CAPSULE.DR PO SCH (06:24)
[2020-02-29] MEDS: VANCOMYCIN 50 MG/ML ORAL SUSP PO SCH ×2 (06:24→12:01)
[2020-02-29 06:47] VITALS: BP 92/71
[2020-02-29] MEDS: CEFTRIAXONE PMX 2GM/50ML 50 ML IV SCH (08:06)
[2020-02-29] MEDS: morphine SULFATE 10 MG/ML, 1ML IVPush PRN (08:06)
[2020-02-29] MEDS ORDERED: MIDAZOLAM 1 MG/ML, 5ML ONE (10:05)
[2020-02-29] MEDS ORDERED: FENTANYL PF 100 MCG/2ML ONE (10:05)
[2020-02-29] MEDS ORDERED: NALOXONE 1 MG/ML, 2ML ONE (10:06)
[2020-02-29] MEDS ORDERED: FLUMAZENIL 0.1 MG/1 ML, 5ML ONE (10:06)
[2020-02-29] MEDS ORDERED: LIDOCAINE 1%, 20ML ONE (10:28)
[2020-02-29] MEDS ORDERED: VANC1VIA3 PO (12:38)
[2020-02-29 12:55] VITALS: BP 109/73
== END 2020-02-29 14:48 | disposition hospice, home (50) | DRG 871 ==
LOC: ED 10:18 → EDIP 10:20 → 4EST 12:05
PROVIDERS: ADMIT Internal Medicine; ATTEND Internal Medicine Infectious Disease
PROC: 0W9G3ZZ Drainage of Peritoneal Cavity, Percutaneous Approach (ICD-10-PCS; principal; 2020-02-19)
PROC: 30233N1 Transfusion of Nonautologous Red Blood Cells into Peripheral Vein, Percutaneous Approach (ICD-10-PCS; 2020-02-19)
PROC: 0W9G3ZZ Drainage of Peritoneal Cavity, Percutaneous Approach (ICD-10-PCS; 2020-02-25)
PROC: 0W9G30Z Drainage of Peritoneal Cavity with Drainage Device, Percutaneous Approach (ICD-10-PCS; 2020-02-29)
PROC: 0JH83XZ Insertion of Tunneled Vascular Access Device into Abdomen Subcutaneous Tissue and Fascia, Percutaneous Approach (ICD-10-PCS; 2020-02-29)
DX: A41.4 Sepsis due to anaerobes (principal); G93.41 Metabolic encephalopathy; F10.239 Alcohol dependence with withdrawal, unspecified; A04.72 Enterocolitis due to Clostridium difficile, not specified as recurrent; D61.818 Other pancytopenia; D62 Acute posthemorrhagic anemia; D68.4 Acquired coagulation factor deficiency; E87.2 Acidosis; K86.1 Other chronic pancreatitis; K92.0 Hematemesis; K70.31 Alcoholic cirrhosis of liver with ascites; Z66 Do not resuscitate; Z51.5 Encounter for palliative care; E83.42 Hypomagnesemia; E88.09 Other disorders of plasma-protein metabolism, not elsewhere classified; F10.229 Alcohol dependence with intoxication, unspecified; F12.90 Cannabis use, unspecified, uncomplicated; G40.909 Epilepsy, unspecified, not intractable, without status epilepticus; I10 Essential (primary) hypertension; K21.0 Gastro-esophageal reflux disease with esophagitis; K22.70 Barrett's esophagus without dysplasia; K31.89 Other diseases of stomach and duodenum; K44.9 Diaphragmatic hernia without obstruction or gangrene; K70.11 Alcoholic hepatitis with ascites; E66.9 Obesity, unspecified; Z87.440 Personal history of urinary (tract) infections; Z90.49 Acquired absence of other specified parts of digestive tract; Z68.25 Body mass index [BMI] 25.0-25.9, adult; Y90.0 Blood alcohol level of less than 20 mg/100 ml
CPT/HCPCS: 36415; 82042; 82150; 82945; 84145; 89051; 96374; 96375; 99291; J3370; J3490; J7042; 49083; 49418; 71045; 74177; 76700; 80048; 80053; 80076; 80307; 81001; 81025; 82010; 82140; 83605; 83615; 83690; 83735; 84100; 84157; 85014; 85018; 85025; 85610; 86850; 86900; 86923; 87040; 87070; 87075; 87086; 87205; 87324; 93005; 99156; 99157; G0378; J0690; J0696; J2250; J2354; J2543; J2704; J3010; J3411; J3430; J3475; J3480; Q9967; C1729; C9113; J0330; J2060; J2270; J2310; J2370; J7030; P9016

== ENCOUNTER 2020-03-17 14:46 | Inpatient (IN) | payer BC, MEDICAID ==
[~2020-03-17] VITALS: Ht 175.3 cm; Wt 62.4 kg
[2020-03-17 15:14] VITALS: BP 94/66
[2020-03-17] MEDS ORDERED: ONDANSETRON 2MG/ML, 2ML IVPush PRN (16:00)
[2020-03-17] MEDS ORDERED: LORazepam 0.5MG TABLET PO PRN (16:00)
[2020-03-17] MEDS ORDERED: OXYcodone IR 5MG TABLET PO PRN (16:00)
[2020-03-17] MEDS: morphine SULFATE 10 MG/ML, 1ML IVPush PRN (17:38)
[2020-03-17 19:03] VITALS: BP 105/76
[2020-03-18 01:25] VITALS: BP 102/64
[2020-03-18 05:22] LABS: ALANINE AMINOTRANSFERASE 21 U/L (12-78); ALBUMIN 1.2 g/dL (3.4-5.0); ANION GAP 5 mmol/L (5-15); CALCIUM 7.2 mg/dL (8.5-10.1); CHLORIDE 109 mmol/L (98-107); CREATININE 0.65 mg/dL (0.55-1.02)
[2020-03-18 05:23] LABS: BASOPHILS # (AUTO) 0.04 x10^3/uL (0-0.1); BASOPHILS % (AUTO) 1 % (0-1); EOSINOPHILS # (AUTO) 0.12 x10^3/uL (0-0.4); EOSINOPHILS % (AUTO) 4 % (1-7); LYMPHOCYTES % (AUTO) 24 % (22-44); MD NO; MEAN CORPUSCULAR HEMOGLOBIN 36.1 pg (27.0-34.8); MEAN CORPUSCULAR HGB CONC 33.1 g/dL (32.4-35.8); MEAN CORPUSCULAR VOLUME 109.2 fL (80-100); MEAN PLATELET VOLUME 8.7 fL (7.4-10.4); MONOCYTES # (AUTO) 0.35 x10^3/uL (0.2-0.8); MONOCYTES % (AUTO) 10 % (2-9); NEUTROPHILS # (AUTO) 2.06 x10^3/uL (1.8-6.8); NEUTROPHILS % (AUTO) 61 % (42-75); PLATELET COUNT 132 x10^3/uL (130-400); RED BLOOD COUNT 2.43 x10^6/uL (3.82-5.3); RED CELL DISTRIBUTION WIDTH 17.7 % (9.6-15.2)
[2020-03-18 05:25] LABS: ALKALINE PHOSPHATASE 130 U/L (45-117); BILIRUBIN,TOTAL 2.4 mg/dL (0.2-1.0)
[2020-03-18 05:27] LABS: INTERNATIONAL NORMALIZED RATIO 1.19 (0.93-1.1); PROTHROMBIN TIME 12.6 Seconds (9.6-11.5)
[2020-03-18 07:51] VITALS: BP 105/70
[2020-03-18] MEDS ORDERED: THIAMINE 100MG TABLET PO SCH (09:00)
[2020-03-18] MEDS ORDERED: MULTIVITAMINS/MINERALS TABLET PO SCH (09:00)
[2020-03-18] MEDS ORDERED: FOLIC ACID 1 MG TABLET PO SCH (09:00)
[2020-03-18 12:31] VITALS: BP 101/60
[2020-03-18] MEDS: morphine SULFATE 10 MG/ML, 1ML IVPush PRN (16:32)
== END 2020-03-18 18:05 | disposition hospice, home (50) | DRG 920 ==
LOC: 3WST 14:46
PROVIDERS: ADMIT Internal Medicine; ATTEND Internal Medicine
DX: T85.618A Breakdown (mechanical) of other specified internal prosthetic devices, implants and grafts, initial encounter (principal); K86.1 Other chronic pancreatitis; D61.818 Other pancytopenia; A04.72 Enterocolitis due to Clostridium difficile, not specified as recurrent; K76.6 Portal hypertension; Z66 Do not resuscitate; K70.31 Alcoholic cirrhosis of liver with ascites; Y83.8 Other surgical procedures as the cause of abnormal reaction of the patient, or of later complication, without mention of misadventure at the time of the procedure; K31.89 Other diseases of stomach and duodenum; K72.90 Hepatic failure, unspecified without coma; Z90.49 Acquired absence of other specified parts of digestive tract; Z82.3 Family history of stroke; Z82.49 Family history of ischemic heart disease and other diseases of the circulatory system; Z80.1 Family history of malignant neoplasm of trachea, bronchus and lung; Z80.8 Family history of malignant neoplasm of other organs or systems; Z83.3 Family history of diabetes mellitus; Z81.3 Family history of other psychoactive substance abuse and dependence; Y92.89 Other specified places as the place of occurrence of the external cause
CPT/HCPCS: 36415; 74176; 76705; 80053; 82140; 83735; 84100; 85025; 85610; 85730; G0378; J2270

== ENCOUNTER 2020-09-04 09:20 | Emergency (ER) | payer MEDICAID ==
[~2020-09-04] VITALS: Ht 175.3 cm; Wt 58.2 kg
[~2020-09-04 09:20] MED LIST changes: +FOLIC ACID PO; +FURO20TA3 PO; +IRON PO; +LORA-445 PO; -PANT40TA5 PO; +PANT40TA6 PO; +SPIR25TA5 PO; +TRAM50TA2 PO
--- NOTE | 2020-09-04 09:59 | NUR ---
PT AMBULATED TO ROOM FROM TRIAGE.
[2020-09-04 10:40] LABS: ALANINE AMINOTRANSFERASE 20 U/L (12-78); ALBUMIN 2.2 g/dL (3.4-5.0); ANION GAP 9 mmol/L (5-15); CALCIUM 7.7 mg/dL (8.5-10.1); CHLORIDE 89 mmol/L (98-107)
[2020-09-04 10:42] LABS: ALKALINE PHOSPHATASE 166 U/L (45-117); BILIRUBIN,TOTAL 4.2 mg/dL (0.2-1.0); TOTAL PROTEIN 7.1 g/dL (6.4-8.2)
[2020-09-04 10:45] LABS: MEAN CORPUSCULAR HGB CONC 34.3 g/dL (32.4-35.8); MEAN PLATELET VOLUME 8.3 fL (7.4-10.4); PLATELET COUNT 279 x10^3/uL (130-400); RED BLOOD COUNT 3.86 x10^6/uL (3.82-5.3); RED CELL DISTRIBUTION WIDTH 15.9 % (9.6-15.2)
[2020-09-04 11:05] LABS: MD YES
[2020-09-04 11:15] LABS: BAND#(MANUAL) 1.96 x10^3/uL; BANDS%(MANUAL) 14 % (0-7); BASOS#(MANUAL) 0.14 x10^3/uL (0-0.1); BASOS% (MANUAL) 1 % (0-1); METAMYELOCYTES# (MANUAL) 0.14 x10^3/uL (0-0); METAMYELOCYTES% (MANUAL) 1 % (0-1); MONOS#(MANUAL) 0.14 x10^3/uL (0.3-2.7); MONOS% (MANUAL) 1 % (2-9); REACTIVE LYMPHS # (MANUAL) 0.14 x10^3/uL (0-0); REACTIVE LYMPHS % (MANUAL) 1 % (0-0)
[2020-09-04 11:16] LABS: ANISOCYTOSIS 2+; LYMPH#(MANUAL) 0.28 x10^3/uL (1-3.4); LYMPHS% (MANUAL) 2 % (22-44); POLYCHROMASIA 1+; SEGS% (MANUAL) 80 % (42-75)
[2020-09-04 11:17] LABS: <PLATELET ESTIMATE> ADEQUATE; <PLT MORPHOLOGY> NORMAL PLT MORPH; TOXIC GRAN 1+
[2020-09-04] MEDS ORDERED: ONDANSETRON 2MG/ML, 2ML IVPush ONE (11:30)
[2020-09-04] MEDS ORDERED: SODIUM CHLORIDE 0.9% 1,000ML IVBOLUS ONE (11:30)
[2020-09-04] MEDS ORDERED: LORazepam 2 MG/ML, 1ML IVPush ONE (11:30)
[2020-09-04] MEDS ORDERED: MORPHINE SULFATE 4 MG/ML, 1ML IVPush PRN (11:30)
[2020-09-04] MEDS ORDERED: POTASSIUM CHLORIDE 20 MEQ TAB.ER.PRT PO ONE (11:30)
[2020-09-04] MEDS ORDERED: POTASSIUM CHLORIDE 20 MEQ TAB.ER.PRT ONE (11:45)
[2020-09-04] MEDS ORDERED: ONDANSETRON 2MG/ML, 2ML ONE (11:46)
[2020-09-04] MEDS ORDERED: LORazepam 2 MG/ML, 1ML ONE (11:46)
[2020-09-04] MEDS ORDERED: MORPHINE SULFATE 4 MG/ML, 1ML ONE (11:46)
--- NOTE | 2020-09-04 12:20 | NUR ---
MEDS PER ORDERS GIVEN PT RESTING UNABLE TO GET UA WILL BE ATTEMPTING FLUIDS INFUSING
[2020-09-04] MEDS ORDERED: OMNIPAQUE 350 MG/ML, 100ML BOTTLE ONE (12:45)
--- NOTE | 2020-09-04 12:58 | NUR ---
per lab test for pro time sent to [facility] they have gotten 2 errors on our machine erp aware
--- NOTE | 2020-09-04 13:27 | NUR ---
RECVD REPORT FROM JENNIFER GARCIA. PLAN OF CARE DISCUSSED
[2020-09-04 13:36] LABS: MICROSCOPIC INDICATED
[2020-09-04 14:34] VITALS: BP 103/80
--- NOTE | 2020-09-04 14:34 | NUR ---
Patient/Caregiver given discharge instructions and they have confirmed that they understand the instructions. Patient ambulatory with steady gait.
--- NOTE | 2020-09-04 16:17 | NUR ---
RELAYED PT AND INR RESULTS TO DR. HARRISON.
== END 2020-09-04 13:55 | disposition home or self-care (01) ==
LOC: ED 11:14
DX: S46.912A Strain of unspecified muscle, fascia and tendon at shoulder and upper arm level, left arm, initial encounter (principal); K85.20 Alcohol induced acute pancreatitis without necrosis or infection; K86.3 Pseudocyst of pancreas; F10.10 Alcohol abuse, uncomplicated; E87.6 Hypokalemia; R94.31 Abnormal electrocardiogram [ECG] [EKG]; I10 Essential (primary) hypertension; Z90.49 Acquired absence of other specified parts of digestive tract; X58.XXXA Exposure to other specified factors, initial encounter; Y93.89 Activity, other specified; Y92.89 Other specified places as the place of occurrence of the external cause; Y99.8 Other external cause status; Y90.9 Presence of alcohol in blood, level not specified
CPT/HCPCS: 36415; 74177; 76700; 80053; 81001; 83690; 85025; 85610; 87086; 93005; 96361; 96374; 96375; 99285; J2060; J2270; J2405; J7030; Q9967

== ENCOUNTER 2020-09-13 13:02 | Emergency (ER) | payer MEDICAID ==
[~2020-09-13 13:02] MED LIST changes: -FOLI-17 PO; +FOLI1TAB32 PO
[2020-09-13] MEDS ORDERED: SODIUM CHLORIDE 0.9% 1,000ML IVBOLUS ONE (14:00)
[2020-09-13] MEDS ORDERED: SODIUM CHLORIDE FLUSH 10ML SYR IVF ONE (14:00)
[2020-09-13] MEDS ORDERED: THIAMINE 100 MG in DEXTROSE 5% 50 ML IVPB ONE (14:00)
[2020-09-13] MEDS ORDERED: THIAMINE 100 MG/ML, 2ML ONE (14:29)
[2020-09-13 14:38] LABS: ALANINE AMINOTRANSFERASE 34 U/L (12-78); ALBUMIN 1.5 g/dL (3.4-5.0); ANION GAP 19 mmol/L (5-15); CALCIUM 6.5 mg/dL (8.5-10.1); CHLORIDE 91 mmol/L (98-107)
[2020-09-13 14:40] LABS: ALKALINE PHOSPHATASE 226 U/L (45-117); BILIRUBIN,TOTAL 7.6 mg/dL (0.2-1.0); CREATININE 3.87 mg/dL (0.55-1.02); MEAN CORPUSCULAR HGB CONC 32.7 g/dL (32.4-35.8); MEAN PLATELET VOLUME 8.6 fL (7.4-10.4); PLATELET COUNT 249 x10^3/uL (130-400); RED BLOOD COUNT 3.32 x10^6/uL (3.82-5.3); RED CELL DISTRIBUTION WIDTH 15.4 % (9.6-15.2); TOTAL PROTEIN 5.8 g/dL (6.4-8.2)
[2020-09-13 14:42] LABS: SALICYLATE LEVEL < 1.7 mg/dL (2.8-20.0)
[2020-09-13] MEDS ORDERED: PLEASE ENTER HEIGHT AND WEIGHT MC SCH (15:00)
[2020-09-13 15:03] LABS: MD YES
[2020-09-13 15:27] LABS: BAND#(MANUAL) 12.75 x10^3/uL; BANDS%(MANUAL) 25 % (0-7); EOS#(MANUAL) 0.51 x10^3/uL (0.0-0.4); EOS% (MANUAL) 1 % (1-7); METAMYELOCYTES# (MANUAL) 0.51 x10^3/uL (0-0); METAMYELOCYTES% (MANUAL) 1 % (0-1); MONOS#(MANUAL) 0.51 x10^3/uL (0.3-2.7); MONOS% (MANUAL) 1 % (2-9); SEG#(MANUAL) 36.72 x10^3/uL (1.8-6.8); SEGS% (MANUAL) 72 % (42-75)
[2020-09-13 15:29] LABS: ANISOCYTOSIS 1+; POLYCHROMASIA 1+; TOXIC GRAN 2+
[2020-09-13 15:30] LABS: <PLATELET ESTIMATE> ADEQUATE; <PLT MORPHOLOGY> NORMAL PLT MORPH
[2020-09-13] MEDS ORDERED: LORazepam 2 MG/ML, 1ML IVPush ONE ×3 (15:30→19:30)
--- NOTE | 2020-09-13 15:37 | NUR ---
pt eyes open but no response from pt
[2020-09-13] MEDS ORDERED: MORPHINE SULFATE 4 MG/ML, 1ML ONE ×4 (15:47→18:15)
[2020-09-13] MEDS: MORPHINE SULFATE 4 MG/ML, 1ML IVPush PRN ×4 (15:54→18:17)
[2020-09-13] MEDS ORDERED: MORPHINE SULFATE 4 MG/ML, 1ML IVPush PRN (16:00)
[2020-09-13] MEDS ORDERED: HALOPERIDOL 5 MG/ML IV ONE (19:00)
[2020-09-13] MEDS ORDERED: MORPHINE 30MG/30ML PCA.SYR IV PRN (19:30)
[2020-09-13] MEDS ORDERED: ONDANSETRON 2MG/ML, 2ML IVPush PRN (19:30)
[2020-09-13] MEDS ORDERED: ATROPINE OPHTH SOLN 1%, 5ML PO PRN (19:30)
[2020-09-13] MEDS ORDERED: LORazepam 2 MG/ML, 1ML IVPush PRN (19:30)
[2020-09-13] MEDS ORDERED: HALOPERIDOL 5 MG/ML ONE (19:48)
[2020-09-13 19:55] VITALS: BP 49/23
[2020-09-13] MEDS ORDERED: SODIUM CHLORIDE FLUSH 10ML SYR IVF SCH (21:00)
--- NOTE | 2020-09-13 23:36 | NUR ---
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 AWAITING CALL BACK.
--- NOTE | 2020-09-13 23:53 | NUR ---
PT 2044 THIS DAMON 09/13/2020 PRONOUNED BY DEDRICK MENON...
--- NOTE | 2020-09-14 02:16 | NUR ---
[facility]; [place] [facility] [place]
--- NOTE | 2020-09-14 11:33 | NUR ---
WHILE TREATING PT GAVE HER 10MG TOTAL OF MORPHINE DOSES OF 2MG THEN X2 DOSES OF 4MG EACH THEN 1 DOSE OF HALDOL 5MG ALL ORDERS OK BY DR SHANKAR PRIOR TO GIVING...
== END 2020-09-13 20:45 | disposition expired ==
LOC: ED 15:45 → SUATTDRO 18:56 → EDIP 19:48 → UNDOADMIN 19:48 → ED 20:45
PROVIDERS: ATTEND Internal Medicine
DX: A41.9 Sepsis, unspecified organism (principal); R65.21 Severe sepsis with septic shock; N17.9 Acute kidney failure, unspecified; K72.90 Hepatic failure, unspecified without coma; J96.91 Respiratory failure, unspecified with hypoxia; J18.9 Pneumonia, unspecified organism; I95.9 Hypotension, unspecified; D72.825 Bandemia; E87.5 Hyperkalemia; E16.2 Hypoglycemia, unspecified; E87.1 Hypo-osmolality and hyponatremia; R18.8 Other ascites; E87.2 Acidosis; E43 Unspecified severe protein-calorie malnutrition; R51.9 Headache, unspecified; R06.89 Other abnormalities of breathing; R94.31 Abnormal electrocardiogram [ECG] [EKG]; Z90.89 Acquired absence of other organs; Z85.850 Personal history of malignant neoplasm of thyroid
CPT/HCPCS: 36415; 70450; 71045; 80053; 80299; 80320; 80329; 82140; 82962; 83605; 85025; 87040; 93005; 96374; 96375; 96376; 99285; J1630; J2270; G0480